=== PATIENT | male | born 1955 | race Caucasian/White ===

== ENCOUNTER 2019-08-30 16:29 | Inpatient (IN) | payer BC, OTHER, SELFPAY ==
[~2019-08-30 16:29] MED LIST: ISOVUE-370 76%-LOCM 1 ML ONE
[2019-08-30 16:58] LABS: #Lymphocytes 1.7 thou/uL (1.20-3.40); #Monocytes 1.4 thou/uL (0.11-0.59); #Neutrophils 15.6 thou/uL (1.40-6.50); %Basophils 0.2 % (0.0-1.0); %Eosinophils 0.1 % (0.0-10.0); %Monocytes 7.6 % (0.0-10.0); %Neutrophils 83.2 % (42.0-75.0); Hemoglobin 15.6 g/dL (14.0-18.0); Mean Corpuscular HGB CONC 32.2 g/dL (32.0-36.0); Mean Corpuscular Volume 96.1 fL (78.0-98.0); Mean Platelet Volume 7.4 fL (7.4-10.4); Platelet Count 240 thou/uL (130-400); RBC Distribution Width 11.3 % (11.5-14.5); Red Blood Cell (RBC) Count 5.05 mill/uL (4.70-6.10); White Blood Cell (WBC) Count 18.8 thou/uL (4.8-10.8)
[2019-08-30 17:28] LABS: ALT (SGPT) 118 U/L (8-55); AST (SGOT) 141 U/L (5-34); Albumin 4.5 g/dL (3.4-4.8); Alkaline Phosphatase 70 U/L (40-110); Anion Gap 14 mmol/L (10-20); BUN (Urea Nitrogen) 13 mg/dL (8.4-25.7); Bilirubin, Total 0.8 mg/dL (0.2-1.2); Calc. Creatinine Clearance 0 mL/min (70-130); Calcium 9.6 mg/dL (7.8-10.44); Carbon Dioxide 25 mmol/L (23-31); Chloride 102 mmol/L (98-107); Estimated GFR-MDRD Greater than 90; Globulin 2.6 g/dL (2.4-3.5); Glucose 133 mg/dL (80-115); Lipase 23 U/L (8-78); Potassium 3.6 mmol/L (3.5-5.1); Protein, Total 7.1 g/dL (5.8-8.1); Sodium 137 mmol/L (136-145)
[2019-08-30] MEDS ORDERED: Ondansetron PF 4 MG/2 ML Vial ONE (17:35)
[2019-08-30] MEDS ORDERED: Morphine 4 MG/ML VIAL ONE ×3 (17:35→19:53)
[2019-08-30 18:04] LABS: Bilirubin Negative (Negative); Blood, Urine Negative (Negative); Clarity Clear (Clear); Glucose, Urine (Dipstick) Normal (Negative); Leukocyte Negative Leu/uL (Negative); Nitrite Negative (Negative); Protein, Urine (Dipstick) Negative (Neg-Trace); Urobilinogen Normal mg/dL (Less than 2)
--- NOTE | 2019-08-30 18:19 | CT ---
CT abdomen and pelvis with IV contrast HISTORY: Abdomen pain. FINDINGS: Parenchymal hyperinflation and mild scarring at the lung bases. Gallbladder is surgically a bsent. Tiny adenoma the lateral limb left adrenal gland. Cortical cyst at the posterior aspect of the left kidney. Calcification throughout the arterial structures. No evidence of bowel obstruction. Scattered mild di verticula arise from the colon without adjacent inflammation. Severe degenerative changes throughout the lumbar spine with multilevel central canal and foraminal s tenoses. IMPRESSION: No acute abnormalities are demonstrated to explain abdominal pain. Mild diverticulosis. No evidence of diverticulitis. Atherosclerosis. Other chronic-type findings as described above.
[2019-08-30] MEDS ORDERED: Ketorolac Tromethamine 30 MG/ML VIAL ONE (19:52)
--- NOTE | 2019-08-30 20:59 | ULT ---
RIGHT UPPER QUADRANT ULTRASOUND CLINICAL HISTORY: Epigastric abdominal pain in lower back pain. COMPARISON: None FINDINGS: Liver:Normal echotexture without focal mass. Intrahepatic bile ducts: No intrahepatic or extrahepatic biliary dilation.; Common bile duct: 3 mm. Gallbladder: Surgically absent Cooley's sign:None Main portal vein:Patent with hepatopedal flow. Pancreas:Visualized pancreas appears normal. Right kidney: Right kidney measures 11.8 x 6.0 x 5.4 cm. No focal renal lesion or hydronephrosis. Additional findings: None. IMPRESSION: No acute abnormality. Cholecystectomy.
[2019-08-30 22:12] LABS: Troponin I 0.138 ng/mL (< 0.028)
[2019-08-30] MEDS ORDERED: Aspirin 325 MG TAB ONE (22:34)
[2019-08-31 01:05] LABS: Troponin I 0.108 ng/mL (< 0.028)
--- NOTE | 2019-08-31 02:26 | HP ---
CHIEF COMPLAINT: Severe lower abdominal pain. HISTORY OF PRESENT ILLNESS: Mr. Richard is a very pleasant 64-year-old gentleman, who has a history of hypertension as well as prostate cancer. He also has a history of psoriatic arthritis and hepatitis C, which has been treated. He says that he was in his usual state of health until yesterday when he says he woke up and had some coffee and then shortly after that he started having severe pain in his lower abdomen. He says it was radiating to his back. He says it was like a "super ache. He rated it about a 9/10. He says he tried to sleep and see if it would go away, but then later it came back and it was extremely severe. He also noticed that he passed some pale green stool at the time this time. He denies having any nausea or any vomiting. But due to the severity of the pain, he decided to come to the ER for evaluation. He was seen in the ER and was found to have slightly elevated troponins, as well as an elevation in his AST. A CT scan of the abdomen and pelvis was performed, but did not show any problems other than some mild diverticulosis. He is being admitted for further evaluation. The patient denies having any chest pain during this time. No shortness of breath, but he did say that he was sweating profusely when the pain was severe. He says that this pain also radiated to his lower back and to his buttocks. He says that prior to this about a week ago, he did notice that he had a flare of his psoriatic arthritis. He had gone to [facility] and at that time he had an injection of an anti-inflammatory and was prescribed Tylenol 3 and prednisone, but during this time, he did not have any type of abdominal pain. REVIEW OF SYSTEMS: All systems were reviewed and are negative except for that mentioned in the history of present illness. 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 Denies any dizziness or lightheaded and he also denied any abdominal pain after eating. PAST MEDICAL HISTORY: Significant for hypertension as well as hepatitis C, history of prostate cancer, psoriatic arthritis, as well as depression. PAST SURGICAL HISTORY: He has had a cholecystectomy and a prostatectomy. ALLERGIES: TO PENICILLIN. SOCIAL HISTORY: He is a former smoker. He previously smoked about half a pack a day for 20 years. He says he used to drink. He said he was not a heavy drinker before, but would drink about 1-1/2 glasses of red wine. He is . No children. FAMILY HISTORY: Significant for COPD in his mother. MEDICATIONS: Include: 1. Lisinopril. 2. Atorvastatin. 3. Lexapro. PHYSICAL EXAMINATION: GENERAL: He is alert and oriented. He appears to be in no acute distress. VITAL SIGNS: Stable with initially a blood pressure of 201/119, currently the most recent blood pressure is 125/91, heart rate 85, respiratory rate of 17, temperature is 97.9. HEENT: Pupils are equal, round, and reactive. Extraocular muscles are intact. Sclerae anicteric. Throat, there is no erythema. No exudates. NECK: No adenopathy, no bruits. LUNGS: Clear to auscultation. There is no wheezing, no rales, no rhonchi. CARDIOVASCULAR: He has a normal S1, S2. There is no S3 or S4. No murmurs, clicks, or rubs. ABDOMEN: Soft. He does have some residual epigastric tenderness. There is no rebound, no guarding. No evidence of any organomegaly. EXTREMITIES: There is no clubbing, cyanosis. No edema. NEUROLOGIC: The exam is nonfocal. SKIN AND INTEGUMENT: No skin changes, no rash. LABORATORY DATA: The sodium is 137, potassium 3.6, chloride is 102, CO2 is 25, BUN of 13, creatinine 0.75, glucose is 133, AST is 141, ALT is 118. Lipase was 23. Urinalysis was completely negative. CBC: The white blood cell count is 18.8, hemoglobin 15.6, hematocrit is 48.5, and platelet count is 240. Troponin is 0.113. ASSESSMENT: This is a 64-year-old gentleman, who presented with epigastric and lower abdominal pain, which started fairly acutely and was extremely severe. It is unclear whether or not it is related to eating. The pain sounds almost as if he may have a common duct stone. However, his alkaline phosphatase is normal. His pain also is reminiscent of pancreatitis, but he has a normal lipase. It is unclear what the etiology is. However, it does appear to be likely gastrointestinal in origin and he does have a significant either stress or inflammatory response with an elevated white blood cell count of 18.8. For this reason, we will go ahead and bring him in the hospital and consult gastroenterology for further recommendations. 1. Elevated troponin. This is unclear etiology. His symptoms do not seem cardiac in origin and he does appear to be fairly active without any signs of angina. We will get an echocardiogram as a means of screening as well as lipid panel and should he have any regional wall motion abnormalities, continue getting a stress test. 2. Psoriatic arthritis. This appears to be clinically stable after his recent flare and elevated glucose. We will get an A1c and trend his glucose levels. 3. We will also repeat his liver test this morning. Job ID: [id number]
[2019-08-31] MEDS ORDERED: hydrALAZINE 20 MG/ML VIAL SLOW IVP PRN (02:48)
[2019-08-31] MEDS ORDERED: Acetaminophen 325 MG TAB PO PRN (02:48)
[2019-08-31] MEDS ORDERED: Morphine 2 MG/ML SYRINGE ONE ×2 (03:01→08:08)
[2019-08-31] MEDS: Morphine 2 MG/ML SYRINGE SLOW IVP PRN ×4 (03:13→22:06)
[2019-08-31] MEDS ORDERED: Sodium Chloride 0.9% 1,000 ML IV SCH (03:15)
[2019-08-31 03:19] LABS: Lactic Acid 2.4 mmol/L (0.5-2.2)
[2019-08-31 03:32] LABS: ALT (SGPT) 317 U/L (8-55); AST (SGOT) 287 U/L (5-34); Albumin 4.5 g/dL (3.4-4.8); Alkaline Phosphatase 99 U/L (40-110); Anion Gap 15 mmol/L (10-20); BUN (Urea Nitrogen) 10 mg/dL (8.4-25.7); Bilirubin, Total 1.5 mg/dL (0.2-1.2); Calc. Creatinine Clearance 0 mL/min (70-130); Calcium 9.9 mg/dL (7.8-10.44); Carbon Dioxide 26 mmol/L (23-31); Chloride 103 mmol/L (98-107); Estimated GFR-MDRD Greater than 90; Globulin 2.8 g/dL (2.4-3.5); Glucose 121 mg/dL (80-115); Protein, Total 7.3 g/dL (5.8-8.1); Sodium 140 mmol/L (136-145)
[2019-08-31] MEDS ORDERED: Acetaminophen 325 MG TAB ONE (04:29)
[2019-08-31 07:36] LABS: #Lymphocytes 1.7 thou/uL (1.20-3.40); #Monocytes 1.4 thou/uL (0.11-0.59); #Neutrophils 13.5 thou/uL (1.40-6.50); %Basophils 0.1 % (0.0-1.0); %Eosinophils 0.2 % (0.0-10.0); %Lymphocytes 10.2 % (21.0-51.0); %Monocytes 8.4 % (0.0-10.0); Hemoglobin 15.5 g/dL (14.0-18.0); Mean Corpuscular HGB CONC 34.8 g/dL (32.0-36.0); Mean Corpuscular Hemoglobin 33.7 pg (27.0-31.0); Mean Corpuscular Volume 96.8 fL (78.0-98.0); Mean Platelet Volume 8.2 fL (7.4-10.4); Platelet Count 211 thou/uL (130-400); RBC Distribution Width 11.5 % (11.5-14.5); Red Blood Cell (RBC) Count 4.61 mill/uL (4.70-6.10); White Blood Cell (WBC) Count 16.6 thou/uL (4.8-10.8)
[2019-08-31] MEDS ORDERED: Aspirin 325 MG TAB ONE (09:01)
[2019-08-31] MEDS ORDERED: Enoxaparin Sodium 40 MG/0.4 ML SYRINGE ONE (09:01)
[2019-08-31] MEDS: Aspirin 325 mg Enteric Coated Tablet PO SCH (09:05)
[2019-08-31] MEDS: Saccharomyces boulardii 250 MG CAP PO SCH (09:05)
[2019-08-31] MEDS: Enoxaparin Sodium 40 MG/0.4 ML SYRINGE SC SCH (09:06)
[2019-08-31] MEDS ORDERED: HYDROcodone/Acetaminophen 5/325 mg Tablet ONE (10:31)
[2019-08-31] MEDS: HYDROcodone/Acetaminophen 5/325 mg Tablet PO PRN ×2 (10:33→14:56)
[2019-08-31 11:23] LABS: HBSAg Index 0.16 S/CO (0-0.99); Hep A IgM AB Non-Reactive (NonReactive); Hep A IgM S/CO 0.07 S/CO (0-0.79); Hep B Surf Ag Non-Reactive S/CO (NonReactive); Hepatitis B Core IgM Abs Non-Reactive (NonReactive)
[2019-08-31 11:50] LABS: Hep C IgG Ab Reflex HepC Qnt (NonReactive); Hep C Index 10.28 S/CO (0-0.79)
[2019-08-31] MEDS ORDERED: Ketorolac Tromethamine 30 MG/ML VIAL IVP SCH (12:15)
[2019-08-31 12:23] VITALS: BMI 25.2
[2019-08-31] MEDS: Sodium Chloride 0.9% 1,000 ML IV SCH ×2 (12:30→22:07)
[2019-08-31] MEDS: metroNIDAZOLE 500 MG in Premix Bag 1 BAG IVPB SCH ×2 (13:30→22:07)
--- NOTE | 2019-08-31 15:33 | CT ---
CT BRAIN WITHOUT CONTRAST: HISTORY: Headache. FINDINGS: No evidence of infarct, hemorrhage, midline shift or abnormal extraaxial fluid collections is seen. T he ventricular size is appropriate and the basilar cisterns are patent. The bony calvarium is intact. The visualized paranasal sinuses and mastoid air cells are well aerated. There is asymmetric prominence of the right internal carotid artery in the cavernous portion. The pos sibility of aneurysm cannot be excluded. IMPRESSION: 1. No CT evidence of acute intracranial process. 2. Further evaluation with CTA of the brain is recommended to evaluate for possible aneurysm. POS: TPC
[2019-08-31] MEDS ORDERED: Polyethylene Glycol 3350 17 GM Packet PO PRN (15:46)
[2019-08-31] MEDS: traMADol HCl 50 MG TAB PO PRN (17:42)
--- NOTE | 2019-09-01 01:34 | CON ---
DATE OF CONSULTATION: 08/31/2019 REASON FOR CONSULTATION: Elevated LFTs, increased abdominal pain. CONSULTING PROVIDER: Rizwan Chaney MD HISTORY OF PRESENT ILLNESS: The patient is a 64-year-old male with past medical history of psoriatic arthritis, hypertension, chronic hepatitis C status post treatment with both interferon and Sovaldi, pancreatitis, and prostate cancer presenting with complaints of abdominal pain. Approximately 1 week ago, the patient had been experiencing increased pains in his joints related to psoriatic arthritis and was evaluated by his physician here in [place]. As such, he ultimately underwent an injection of Toradol in addition to placement on prednisone and Tylenol No. 3 for further management of this condition. He had been taking these medications for approximately 3 to 4 days. When yesterday, he had acute onset of periumbilical abdominal pain that was characterized as a sharp/stabbing/cramping type sensation and radiated to the bilateral lower back, the pain lasted approximately 2-3 hours and then resolved, but then recurred later in the evening that prompted admission and reached a severity of 9/10. The patient did not endorse any exacerbating factors, but was better with the administration of narcotic medications during this admission. With the onset of this pain, it was also associated with one pale-colored stool that was prior to the onset of the pain. He adds that he has been having approximately one semi-solid bowel movement per day over the last 1 to 2 weeks with no difficulty with defecation. However, during the course of this admission, the patient was given narcotic medications both in the ER and on the floor and has now had complete resolution of his abdominal pain. Rather, he now complains of any increased headache that has been present since the onset of his abdominal pain yesterday. With the onset of his headache, he denies any paresthesias or changes in vision and has not had a headache like this before. Currently, he denies any nausea, vomiting, fevers, chills, hematemesis, melena, hematochezia, odynophagia, or constipation. REVIEW OF SYSTEMS: A 10-category review of systems was obtained with all responses negative except for the pertinent positives as listed in HPI. PAST MEDICAL HISTORY: As per HPI. PAST SURGICAL HISTORY: Cholecystectomy, prostatectomy. FAMILY HISTORY: Denies any GI malignancies. SOCIAL HISTORY: Denies any tobacco, alcohol, or illicit drug use. OUTPATIENT MEDICATIONS: 1. Lisinopril. 2. Atorvastatin. 3. Lexapro. ALLERGIES: PENICILLIN. PHYSICAL EXAMINATION: VITAL SIGNS: Temperature 97.8, pulse 61, blood pressure 160/95, respiratory rate 18, saturating 96% on room air. GENERAL: The patient is lying in bed, in no acute distress. Alert and oriented x4. HEENT: Normocephalic, atraumatic. NECK: Supple. No JVD or scleral icterus noted. CARDIOVASCULAR: Regular rate and rhythm with no discernible murmurs, gallops, or rubs. RESPIRATORY: Clear to auscultation bilaterally with no discernible wheezes or rales. ABDOMEN: Normoactive bowel sounds. Soft, nontender, nondistended. EXTREMITIES: No cyanosis, clubbing, or edema. LABORATORY DATA: CBC with a white blood cell count of 16.6, hemoglobin 15.5, hematocrit 44.7, platelets 211. Chemistry with a sodium of 140, potassium 4, chloride 103, CO2 of 26, BUN 10, creatinine 0.75, glucose 121. AST 287, ALT 317, alkaline phosphatase 99, total bilirubin 1.5, albumin 4.5. Acute hepatitis panel was negative for hepatitis A and B, but positive for hepatitis C antibody with viral load still pending at this time. IMAGING DATA: Right upper quadrant ultrasound was obtained on August 30, 2019, which showed no intra or extrahepatic dilatation with the common bile duct measuring 3 mm in size and the liver heterogeneous and normal in appearance. CT of the abdomen and pelvis was obtained on August 30, 2019, which showed surgical change consistent with cholecystectomy and severe degenerative joint disease of the spine. However, no intraabdominal abnormalities were noted except for mild diverticulosis within the sigmoid colon. ASSESSMENT AND PLAN: The patient is a 64-year-old male with past medical history of psoriatic arthritis, hypertension, chronic hepatitis C, status post treatment and eradication with Sovaldi, pancreatitis (no further recurrences), and prostate cancer, presenting with increased periumbilical abdominal pain (now resolved) and abnormal liver function tests. Abnormal LFTs. The patient is presenting with a recent history of acute onset of periumbilical abdominal pain that has now since resolved, but upon admission the patient was noted to have elevated liver function tests, as part of routine testing. Upon review of the patient's recent history, he also states that he had recently had medication changes including Toradol, prednisone, and Tylenol No. 3 over the last week, which could potentially generate the elevated LFTs now. Given the degree of AST and ALT elevation in relation to his alkaline phosphatase and total bilirubin, this could be considered hepatocellular injury as opposed to a cholestatic or mixed process. Current differential could include medication-induced hepatotoxicity, autoimmune process (unlikely), Michael disease and/or GI malignancy (less likely). RECOMMENDATIONS: 1. I would continue to trend his LFTs daily for continued monitoring of the patient's liver function/inflammation. 2. Would attempt to avoid any hepatotoxic medications during this admission including NSAIDs. 3. We will follow up on labs for antismooth-muscle antibody, ceruloplasmin, and hepatitis C viral load to confirm eradication. 4. We would consider obtaining serologies for CMV and VZV if the patient's LFTs continue to rise. 5. We would also confer with Radiology about the CT abdomen and pelvis and possible stenoses within the celiac plexus that might contribute to a vascular insufficiency, albeit unlikely. We will continue to follow. Please call with any questions. Job ID: [id number]
[2019-09-01] MEDS: metroNIDAZOLE 500 MG in Premix Bag 1 BAG IVPB SCH ×3 (06:24→19:42)
[2019-09-01] MEDS: Morphine 2 MG/ML SYRINGE SLOW IVP PRN ×3 (06:26→23:49)
[2019-09-01 06:42] LABS: ALT (SGPT) 168 U/L (8-55); AST (SGOT) 61 U/L (5-34); Albumin 4.2 g/dL (3.4-4.8); Alkaline Phosphatase 102 U/L (40-110); Anion Gap 12 mmol/L (10-20); BUN (Urea Nitrogen) 7 mg/dL (8.4-25.7); Bilirubin, Total 1.4 mg/dL (0.2-1.2); Calc. Creatinine Clearance 136 mL/min (70-130); Calcium 9.3 mg/dL (7.8-10.44); Carbon Dioxide 25 mmol/L (23-31); Chloride 101 mmol/L (98-107); Estimated GFR-MDRD Greater than 90; Globulin 2.6 g/dL (2.4-3.5); Glucose 106 mg/dL (80-115); Potassium 3.6 mmol/L (3.5-5.1); Protein, Total 6.8 g/dL (5.8-8.1); Sodium 134 mmol/L (136-145)
[2019-09-01] MEDS: traMADol HCl 50 MG TAB PO PRN ×2 (08:56→19:23)
[2019-09-01] MEDS: Saccharomyces boulardii 250 MG CAP PO SCH (08:58)
[2019-09-01] MEDS: Enoxaparin Sodium 40 MG/0.4 ML SYRINGE SC SCH (08:58)
[2019-09-01] MEDS: Aspirin 325 mg Enteric Coated Tablet PO SCH (08:58)
[2019-09-01] MEDS: Lisinopril 20 MG TAB PO SCH (09:01)
[2019-09-01] MEDS: Escitalopram Oxalate 10 mg Tablet PO SCH (09:01)
[2019-09-01] MEDS: Sodium Chloride 0.9% 1,000 ML IV SCH ×3 (13:05→23:55)
[2019-09-01] MEDS ORDERED: Magnesium Citrate 300 ML BOT PO SCH (18:00)
--- NOTE | 2019-09-01 18:54 | PDOC.HOSPP ---
- Subjective Encounter Date: 09/01/19 Subjective: Pt seen says has persistent right upper quadrant pain , Denies nausea vomiting but feels constipation says feels uncomfortable with pain - Objective Vital Signs & Weight: Vital Signs (12 hours) Temp Pulse Resp BP Pulse Ox 09/01/19 15:15 98.2 F 85 16 137/102 H 96 09/01/19 11:28 97.7 F 89 22 H 128/85 96 09/01/19 07:21 97.6 F 66 16 171/85 H 96 Weight Weight 196 lb 12.8 oz I&O: 08/31/19 09/01/19 09/02/19 06:59 06:59 06:59 Intake Total 2530 2317 Balance 2530 2317 Result Diagrams: 08/31/19 07:22 09/01/19 05:51 Hospitalist ROS - Review of Systems Constitutional: denies: fever Eyes: denies: pain ENT: denies: ear pain Respiratory: denies: cough Cardiovascular: denies: chest pain Gastrointestinal: reports: abdominal pain, constipation Genitourinary: denies: dysuria Musculoskeletal: denies: neck pain Neurological: denies: weakness - Medication Medications: Active Medications Generic Name Dose Route Start Last Admin Trade Name Freq PRN Reason Stop Dose Admin Aspirin 325 mg 08/31/19 09:00 09/01/19 08:58 Ecotrin PO 325 mg DAILY MORAIMA Administration Enoxaparin Sodium 40 mg 08/31/19 09:00 09/01/19 08:58 Lovenox SC 40 mg 0900 MORAIMA Administration Escitalopram Oxalate 10 mg 09/01/19 09:00 09/01/19 09:01 Lexapro PO 10 mg DAILY MORAIMA Administration Hydralazine HCl 10 mg 08/31/19 02:48 08/31/19 12:29 Apresoline SLOW IVP 10 mg Q4H PRN Administration SBP > 180 and HR < 70 Ciprofloxacin/Dextrose 400 mg/ 200 mls @ 200 mls/hr 08/31/19 09:00 09/01/19 09:01 Device IVPB 200 mls Q12HR MORAIMA Administration Metronidazole 500 mg/ Device 100 mls @ 100 mls/hr 08/31/19 14:00 09/01/19 14: 13 IVPB 100 mls Q8HR MORAIMA Administration Sodium Chloride 1,000 mls @ 125 mls/hr 08/31/19 12:15 09/01/19 13:05 Normal Saline 0.9% IV 1,000 mls .Q8H MORAIMA Administration Lisinopril 20 mg 09/01/19 09:00 09/01/19 09:01 Zestril PO 20 mg DAILY MORAIMA Administration Magnesium Citrate 300 ml 09/01/19 18:00 09/01/19 18:03 Citrate Of Magnesia 300 Ml Bot PO 09/01/19 20:00 300 ml NOW MORAIMA Administration Morphine Sulfate 2 mg 08/31/19 02:48 09/01/19 06:26 Morphine SLOW IVP 2 mg Q4H PRN Administration Moderate to Severe Pain (6-10) Saccharomyces Boulardii 250 mg 08/31/19 09:00 09/01/19 08:58 Florastor PO 250 mg DAILY MORAIMA Administration Sodium Chloride 10 ml 08/31/19 09:00 09/01/19 08:59 Flush - Normal Saline IVF Not Given Q12HR MORAIMA Tramadol HCl 50 mg 08/31/19 16:24 09/01/19 08:56 Ultram PO 50 mg Q6H PRN Administration Pain - Exam General Appearance: awake alert Eye: anicteric sclera ENT: normocephalic atraumatic Neck: supple Heart: no murmur Respiratory: no wheezes Gastrointestinal: soft Gastrointestinal - other findings: tender RUQ on deep palpation no rebound or gaurding Skin: normal turgor Neurological: cranial nerve grossly intact Musculoskeletal: normal tone Psychiatric: normal affect, A&O x 3 Hosp A/P - Plan Intractable RUQ pain with deranged LFT and high lactic acid level on admission GI Evaluation appreciated , pending MRI abdomen in am , Anti hcv positive , LFT trending down , Continue prn pain tramadol , mag citrate given for constipation Positive troponin possible demand supply mismatch Denies chest pain or SOB as per pt 2 yesrs ago cardiac cath done Glavaston neg H/O Psoriatic arthritis Continue prn pain meds DVT/GI prophaylxis Plan Discussed with pt and nursign staff
--- NOTE | 2019-09-01 21:49 | PRG ---
DATE OF SERVICE: 09/01/2019 SUBJECTIVE: Mr. Richard felt better yesterday, but today the abdominal pain returned and it seems to be a little more located towards the right upper quadrant and periumbilical region. He states that he feels constipated and his last bowel movement was Friday. This was an incomplete bowel movement. He took two 5 mg Dulcolax tablets from home. He took those in his hospital room this afternoon, but has had no results from them. OBJECTIVE: VITAL SIGNS: Temperature 98.2, pulse 85, and blood pressure 137/102. GENERAL: He is in no acute distress. Alert and oriented x3. HEENT: Eyes have no scleral icterus. Oropharynx is clear without lesions. LUNGS: Clear to auscultation bilaterally. HEART: Regular rate and rhythm without murmur. ABDOMEN: Soft. Mild tenderness in the right upper quadrant without guarding. Bowel sounds are present. EXTREMITIES: No lower extremity edema. LABORATORY DATA: White blood cell count 16.8, hemoglobin 15.5, and platelets 211. Creatinine 0.71, bilirubin 1.4, AST 61, ALT 168, alkaline phosphatase 102, albumin 4.2, and lipase was 23 yesterday. IMPRESSION: 1. Abnormal liver function tests. 2. Right upper quadrant to periumbilical abdominal pain. The CT scan does show significant amount of stool over in the ascending colon and this might be the source of his pain. He has had no bowel movement for a couple days and the one that he had on Friday morning was incomplete. He took a couple of stimulant laxatives himself that he brought from home, but has had no output with that as of yet. Alternatively does have a history of gallstone pancreatitis and had cholecystectomy for that in the past. He has pain that is more towards the right upper quadrant with elevated white blood cell count and elevated liver tests including more of a hepatocellular injury pattern with transaminitis. However, the bilirubin is also elevated. A primary stone in the bile duct is possible. Other possibility would be medication side effects given recently taking Tylenol and opioids and prednisone. RECOMMENDATIONS: 1. We will give him a bottle of Mag citrate this afternoon. If his abdominal pain resolves with bowel movement, then we will place him on daily scheduled MiraLAX. The constipation; however, would not explain the elevated liver tests and elevated white blood cell count. 2. We will plan MRCP tomorrow morning to rule out retained or primary bile duct stone. Job ID: [id number]
[2019-09-01] MEDS: Nitroglycerin 0.4 MG TAB (25 Tab Bottle) SL PRN ×3 (22:19→23:22)
[2019-09-01 22:23] LABS: #Eosinphils 0.2 thou/uL (0.0-0.7); #Lymphocytes 1.7 thou/uL (1.20-3.40); #Monocytes 1.8 thou/uL (0.11-0.59); #Neutrophils 13.6 thou/uL (1.40-6.50); %Basophils 0.1 % (0.0-1.0); %Lymphocytes 9.9 % (21.0-51.0); %Monocytes 10.2 % (0.0-10.0); %Neutrophils 78.8 % (42.0-75.0); Hemoglobin 15.6 g/dL (14.0-18.0); Mean Corpuscular HGB CONC 35.5 g/dL (32.0-36.0); Mean Corpuscular Hemoglobin 33.8 pg (27.0-31.0); Mean Corpuscular Volume 95.2 fL (78.0-98.0); Mean Platelet Volume 7.1 fL (7.4-10.4); Platelet Count 185 thou/uL (130-400); RBC Distribution Width 11.4 % (11.5-14.5); White Blood Cell (WBC) Count 17.3 thou/uL (4.8-10.8)
--- NOTE | 2019-09-01 22:37 | RAD ---
Chest AP view INDICATION: Chest pain and shortness of breath COMPARISON: Prior single view the chest dated July 22, 2013 FINDINGS: Lungs:There is a stable calcified granuloma in the right upper lobe. No definite consolidation is samantha dent. Cardiac silhouette:The cardiomediastinal silhouette appears within normal limits. Pulmonary vasculature:Normal Pleural spaces:No pleural effusion or pneumothorax is demonstrated. Upper abdomen:No abnormality seen. Osseous structures: No acute osseous abnormality. Additional findings:None. IMPRESSION: No acute cardiopulmonary abnormality.
[2019-09-01 22:45] LABS: Anion Gap 12 mmol/L (10-20); BUN (Urea Nitrogen) 8 mg/dL (8.4-25.7); Calc. Creatinine Clearance 136 mL/min (70-130); Calcium 8.7 mg/dL (7.8-10.44); Carbon Dioxide 26 mmol/L (23-31); Chloride 99 mmol/L (98-107); Estimated GFR-MDRD Greater than 90; Glucose 134 mg/dL (80-115); Magnesium 2.1 mg/dL (1.6-2.6); Potassium 3.5 mmol/L (3.5-5.1); Sodium 133 mmol/L (136-145)
[2019-09-01 23:30] LABS: CKMB 52.1 ng/mL (0-6.6)
[2019-09-01] MEDS ORDERED: Nitroglycerin 2% Ointment 1 INCH/1 GM Packet TOP SCH (23:30)
--- NOTE | 2019-09-01 23:38 | PDOC.EVN ---
Event Note - Event Note Event Note: Notified by RN, patient complaining of chest pain. No relief despite morphine and tramadol given. I ordered stat EKG as well as labs (CBC, BMP, Mg+ and troponin). Patient evaluated and states he has had chest pain since 5pm/6pm which he described as "excruciating" over the left side of his chest feeling as if someone was sitting on his chest. He reports difficulty with his breathing due to the pain. It has eased off "a notch" but remains persistent. It is now in the center of his chest. It has been constant. States it started after he took a couple of bites of his supper. Reports feeling diaphoretic. No abdominal pain at present. States he came in with abdominal pain and this is different from the pain he came in with . No cough or hemoptysis. On exam appeared anxious and laying flat in bed. States pain is an 8/10 in severity. No tenderness with palpation. BP elevated 170 systolic. No abdominal pain or tenderness. Lungs clear. Heart sounds normal. EKG showed NSR. Troponin has since come back elevated at 10. Dr. Lim alerted of possible NSTEMI. Given drop in BP before nitro given, CT aortic dissection stat. Patient being treated for hepatitis, we have ordered stat coags. Will wait on both of those before proceeding with Lovenox 1 mg/kg (would be 90 mg based on his weight). Consult placed to cardiology Repeat EKG 2 hours from first EKG. If ST elevation, RN aware to activate STEMI alert. Above plan as per discussion with Dr. Lim. Patient with normal coags. BP labile. Lovenox 90 mg SC x 1 given. Nitro drip ordered per Dr. Lim, and patient will be transferred to ICU. Addendum: I have re-evaluated patient around 5am, chest pain has eased up, no sob vitals are stable will inform cardio environmental health inspector, keep him npo
--- NOTE | 2019-09-01 23:47 | CT ---
CTA OF THE CHEST AND ABDOMEN UTILIZING AN AORTIC DISSECTION PROTOCOL AND 3-D REFORMATTED IMAGING INDICATION: Chest pain COMPARISON: None FINDINGS: Aorta: No acute aortic stenosis, occlusion or aneurysmal formation demonstrated. There is tortuosity to the thoracic aorta, related to the patient's thoracolumbar scoliosis. Central pulmonary artery: No central pulmonary embolus demonstrated. Additional thorax findings: No focal consolidation, pleural effusion or pneumothorax is evident. Additional abdominal findings: No acute abnormality. Osseous structures: No acute osseous abnormality. IMPRESSION: 1. No appreciable aortic stenosis, occlusion or aneurysmal formation demonstrated.
[2019-09-02 00:13] LABS: INR-International Normal Ratio 1.1; PTT 31.8 SEC (22.9-36.1); Prothrombin Time 14.1 SEC (12.0-14.7)
[2019-09-02] MEDS ORDERED: Enoxaparin Sodium 100 MG/ML SYRINGE SC SCH ×2 (00:30→09:00)
[2019-09-02] MEDS ORDERED: Nitroglycerin 50 MG/250 ML BOT 250 ML IVPB SCH (00:45)
[2019-09-02] MEDS: traMADol HCl 50 MG TAB PO PRN ×2 (01:14→12:59)
[2019-09-02] MEDS ORDERED: Ketorolac Tromethamine 30 MG/ML VIAL IVP SCH (02:00)
[2019-09-02] MEDS ORDERED: Docusate 100 MG CAP PO SCH (02:00)
[2019-09-02] MEDS ORDERED: Metoprolol Tartrate 25 MG TAB PO SCH (02:00)
[2019-09-02] MEDS: Morphine 2 MG/ML SYRINGE SLOW IVP PRN ×2 (03:45→16:26)
[2019-09-02] MEDS: metroNIDAZOLE 500 MG in Premix Bag 1 BAG IVPB SCH ×3 (03:46→20:25)
[2019-09-02 04:54] LABS: #Eosinphils 0.2 thou/uL (0.0-0.7); #Lymphocytes 1.6 thou/uL (1.20-3.40); #Neutrophils 13.4 thou/uL (1.40-6.50); %Basophils 0.1 % (0.0-1.0); %Eosinophils 1.2 % (0.0-10.0); %Lymphocytes 9.1 % (21.0-51.0); %Monocytes 11.6 % (0.0-10.0); Hemoglobin 14.6 g/dL (14.0-18.0); Mean Corpuscular Hemoglobin 33.6 pg (27.0-31.0); Mean Platelet Volume 7.5 fL (7.4-10.4); Platelet Count 197 thou/uL (130-400); RBC Distribution Width 11.5 % (11.5-14.5); Red Blood Cell (RBC) Count 4.35 mill/uL (4.70-6.10); White Blood Cell (WBC) Count 17.2 thou/uL (4.8-10.8)
[2019-09-02 05:15] LABS: ALT (SGPT) 108 U/L (8-55); AST (SGOT) 77 U/L (5-34); Albumin 3.8 g/dL (3.4-4.8); Alkaline Phosphatase 85 U/L (40-110); Anion Gap 10 mmol/L (10-20); BUN (Urea Nitrogen) 9 mg/dL (8.4-25.7); Bilirubin, Total 1.7 mg/dL (0.2-1.2); Calc. Creatinine Clearance 134 mL/min (70-130); Calcium 8.9 mg/dL (7.8-10.44); Carbon Dioxide 29 mmol/L (23-31); Chloride 100 mmol/L (98-107); Estimated GFR-MDRD Greater than 90; Globulin 2.1 g/dL (2.4-3.5); Glucose 112 mg/dL (80-115); Potassium 4.1 mmol/L (3.5-5.1); Protein, Total 5.9 g/dL (5.8-8.1); Sodium 135 mmol/L (136-145)
[2019-09-02] MEDS: Lisinopril 20 MG TAB PO SCH (08:14)
[2019-09-02] MEDS: Saccharomyces boulardii 250 MG CAP PO SCH (08:14)
[2019-09-02] MEDS: Aspirin 325 mg Enteric Coated Tablet PO SCH (08:14)
[2019-09-02] MEDS: Escitalopram Oxalate 10 mg Tablet PO SCH (08:14)
[2019-09-02] MEDS: Polyethylene Glycol 3350 17 GM Packet PO SCH (08:15)
[2019-09-02] MEDS: Docusate 100 MG CAP PO SCH (08:15)
[2019-09-02] MEDS ORDERED: Communication Order-Pharmacy FS SCH (08:30)
[2019-09-02] MEDS ORDERED: Aspirin Chewable 81 MG TAB PO SCH (09:15)
[2019-09-02] MEDS: Sodium Chloride 0.9% 1,000 ML IV SCH ×2 (09:52→20:07)
[2019-09-02] MEDS ORDERED: Lidocaine 1% (PF) 30 ML VIAL ONE (10:15)
[2019-09-02] MEDS ORDERED: Diazepam 5 MG TAB PO SCH (10:15)
--- NOTE | 2019-09-02 10:24 | CON ---
DATE OF CONSULTATION: 09/02/2019 REASON FOR CONSULTATION: Non-ST elevation myocardial infarction. HISTORY OF PRESENT ILLNESS: Mr. Richard is a complicated 64-year-old gentleman, who was admitted to the hospital a couple of days ago with severe epigastric and mid abdominal pain. The patient has a history of hepatitis C, which has been treated in the past. He also has history of prostate cancer and psoriatic arthritis. The patient had the onset of severe substernal chest pain last night different from any pain he has had before. He was moved to the intensive care unit. He was found to have increased troponin level. He was given enoxaparin and intravenous nitroglycerin. The patient is pain-free now. The patient otherwise has been in fair physical condition. He says the psoriatic arthritis has recently has flared up. The patient was treated in the past for hepatitis C, although his liver function tests were again elevated. The patient does not currently smoke. REVIEW OF SYSTEMS: CONSTITUTIONAL: No significant weight gain or loss. VISION: No changes. HEARING: No changes. PULMONARY: No cough or wheezing. GASTROINTESTINAL: No nausea, vomiting, or diarrhea. SKIN: No rashes. NEUROLOGIC: No unilateral weakness or numbness. PSYCHIATRIC: No unusual depression or anxiety. CURRENT MEDICATIONS: The patient is currently on intravenous nitrates and he is also on subcutaneous Lovenox, he received at 12:30 a.m. Other medicine the patient is also on; 1. Ciprofloxacin. 2. Metronidazole. ALLERGIES: TO PENICILLIN. SOCIAL HISTORY: As outlined above. Previous smoking, none recently. PHYSICAL EXAMINATION: GENERAL: This is a pleasant, somewhat apprehensive 64-year-old man. VITAL SIGNS: Blood pressure is 128/87 and pulse is 80s. HEENT: Eyes, sclerae nonicteric. Mouth, mucous membranes moist. NECK: Supple. No lymphadenopathy. LUNGS: Clear. No wheezing, rales, or rhonchi. CARDIAC: Normal S1 and normal S2. There is no murmur, rub, or gallop. ABDOMEN: Soft and nontender. No hepatosplenomegaly. EXTREMITIES: Warm and dry. No clubbing or cyanosis or edema. Good peripheral pulses. Good posterior tibial and dorsalis pedis pulses. LABORATORY DATA: EKG does show Q-waves in the inferior leads. There is no ST changes last night. The patient's peak troponin is 12 and peak CK-MB is 91. The patient's bilirubin is 1.7 and ALT is 168 down to 108. Potassium is 4.1. The PT and PTT are within normal limits. ASSESSMENT: 1. Non-ST elevation myocardial infarction, although he now has Q-waves in the inferior leads. 2. Abdominal pain of uncertain etiology, being evaluated by Gastroenterology. 3. History of hepatitis C. 4. History of psoriatic arthritis. 5. History of prostate cancer with previous prostatectomy with no evidence of any recurrence. PLAN: At this time, it would be appropriate to proceed to cardiac catheterization. Discussed risk of stroke, heart attack, iodine allergy, loss of blood supply to leg or kidney, and vessel perforation in the coronary artery. The patient understands and wished to proceed. As mentioned, prognosis is guarded. He has multiple medical problems, complicated patient. Approximately an hour was spent reviewing studies, reviewing the history, and evaluating and examining the patient. Job ID: [id number]
--- NOTE | 2019-09-02 10:39 | PDOC.HOSPP ---
- Subjective Encounter Date: 09/02/19 Subjective: Pt seen in ICU jody C/O mild soreness left side of chest has had left sided chest pain last night and positive troponins CTA chest neg for disection and pt admitted to icu being arranged for heart cath today , denies abdominal pain today had bowel movement not in distress but looks little nervous - Objective Vital Signs & Weight: Vital Signs (12 hours) Temp BP BP Pulse Ox 09/02/19 08:14 125/97 H 09/02/19 08:00 97.7 F 97 09/02/19 04:00 98.0 F 09/02/19 00:50 97 09/02/19 00:05 156/104 H 09/01/19 23:55 200/84 H 09/01/19 23:17 155/104 H 09/01/19 22:40 140/96 H 09/01/19 22:35 138/99 H Weight Weight 196 lb 12.8 oz Most Recent Monitor Data Heart Rate from ECG 104 NIBP 132/99 NIBP BP-Mean 110 Respiration from ECG 17 SpO2 95 I&O: 09/01/19 09/02/19 09/03/19 06:59 06:59 06:59 Intake Total 2530 2654 Output Total 150 250 Balance 2530 2504 -250 Result Diagrams: 09/02/19 04:26 09/02/19 04:26 Hospitalist ROS - Review of Systems Eyes: denies: vision change ENT: denies: ear pain Respiratory: denies: cough Cardiovascular: reports: chest pain Gastrointestinal: denies: abdominal pain Musculoskeletal: denies: neck pain Neurological: denies: weakness - Medication Medications: Active Medications Generic Name Dose Route Start Last Admin Trade Name Dilshadq PRN Reason Stop Dose Admin Aspirin 325 mg 08/31/19 09:00 09/02/19 08:14 Ecotrin PO 325 mg DAILY MORAIMA Administration Aspirin 162 mg 09/02/19 09:15 09/02/19 09:50 Aspirin Chewable PO 09/02/19 11:15 162 mg NOW MORAIMA Administration Diazepam 5 mg 09/02/19 10:15 09/02/19 10:26 Valium PO 09/02/19 12:00 5 mg NOW MORAIMA Administration Docusate Sodium 100 mg 09/02/19 09:00 09/02/19 08:15 Colace PO Not Given DAILY MORAIMA Escitalopram Oxalate 10 mg 09/01/19 09:00 09/02/19 08:14 Lexapro PO 10 mg DAILY MORAIMA Administration Hydralazine HCl 10 mg 08/31/19 02:48 08/31/19 12:29 Apresoline SLOW IVP 10 mg Q4H PRN Administration SBP > 180 and HR < 70 Ciprofloxacin/Dextrose 400 mg/ 200 mls @ 200 mls/hr 08/31/19 09:00 09/02/19 08:13 Device IVPB 200 mls Q12HR MORAIMA Administration Metronidazole 500 mg/ Device 100 mls @ 100 mls/hr 09/01/19 20:00 09/02/19 03: 46 IVPB 100 mls 0400,1200,2000 MORAIMA Administration Nitroglycerin/Dextrose 250 mls @ 0 mls/hr 09/02/19 00:45 09/02/19 01:00 Nitroglycerin 50 Mg/250 Ml Bot IVPB 250 mls INF MORAIMA Administration Protocol Titrate Sodium Chloride 1,000 mls @ 100 mls/hr 09/02/19 08:30 09/02/19 09:52 Normal Saline 0.9% IV 1,000 mls .Q10H MORAIMA Administration Lisinopril 20 mg 09/01/19 09:00 09/02/19 08:14 Zestril PO 20 mg DAILY MORAIMA Administration Morphine Sulfate 2 mg 08/31/19 02:48 09/02/19 03:45 Morphine SLOW IVP 2 mg Q4H PRN Administration Moderate to Severe Pain (6-10) Nitroglycerin 0.4 mg 09/01/19 22:08 09/01/19 23:22 Nitrostat SL 0.4 mg Q5MIN PRN Administration Chest Pain Polyethylene Glycol 17 gm 09/02/19 09:00 09/02/19 08:15 Miralax PO Not Given DAILY MORAIMA Saccharomyces Boulardii 250 mg 08/31/19 09:00 09/02/19 08:14 Florastor PO 250 mg DAILY MORAIMA Administration Sodium Chloride 10 ml 08/31/19 09:00 09/02/19 08:15 Flush - Normal Saline IVF 10 ml Q12HR MORAIMA Administration Tramadol HCl 50 mg 08/31/19 16:24 09/02/19 01:14 Ultram PO 50 mg Q6H PRN Administration Pain - Exam General Appearance: awake alert Eye: anicteric sclera ENT: normocephalic atraumatic Neck: supple Heart: no murmur Respiratory: CTAB Gastrointestinal: soft, non-tender, non-distended Extremities: no cyanosis Skin: normal turgor Neurological: cranial nerve grossly intact Hosp A/P - Plan NSTEMI With Positive troponin with Chest pain last night s/p transfer to ccu on nitro drip being arranged for cardiac cath Continue aspirin f/u Cath recomendations Intractable RUQ pain with deranged LFT and high lactic acid level on admission GI Evaluation appreciated , pending MRI abdomen , Anti hcv positive , LFT trending down , Continue prn pain tramadol , constipation better , abdominal pain better and improved today H/O Psoriatic arthritis Continue prn pain meds DVT/GI prophaylxis Plan Discussed with pt and nursing staff today
[2019-09-02] MEDS ORDERED: Fentanyl 100 MCG/2 ML VIAL ONE (10:50)
[2019-09-02] MEDS ORDERED: Midazolam HCl 2 mg/2 ml Vial ONE (10:50)
[2019-09-02] MEDS ORDERED: Iopamidol 370 76% 100 ML VIAL ONE (10:51)
[2019-09-02 11:00] LABS: Hep C PCR-Quant HCV Not Detected IU/mL (.)
[2019-09-02] MEDS ORDERED: Nitroglycerin 0.4 MG TAB (25 Tab Bottle) SL PRN (11:39)
[2019-09-02] MEDS ORDERED: Sodium Chloride 0.9% 200 ML IV PRN (11:39)
[2019-09-02] MEDS ORDERED: Acetaminophen/Codeine 30-300mg Tablet PO PRN (11:39)
[2019-09-02] MEDS ORDERED: Carvedilol 6.25 MG TAB PO SCH ×3 (14:45→21:00)
--- NOTE | 2019-09-02 16:43 | EKG ---
Test Reason : Blood Pressure : / mmHG Vent. Rate : 095 BPM Atrial Rate : 095 BPM P-R Int : 138 ms QRS Dur : 090 ms QT Int : 360 ms P-R-T Axes : 048 035 040 degrees QTc Int : 452 ms Normal sinus rhythm Inferior infarct , age undetermined Abnormal ECG Confirmed by CORINNE CARROLL ([id number]) on 09/02/2019 4:43:11 PM Referred By: Confirmed By:CORINNE CARROLL
--- NOTE | 2019-09-02 22:50 | PRG ---
DATE OF SERVICE: 09/02/2019 SUBJECTIVE: Yesterday evening after the patient took Mag citrate, he did have some bowel movement, but feels like it was small and incomplete. Feels like his stools are not right and there is something wrong in his abdomen. He did eat a few bites of dinner after taking the laxative yesterday and is started having chest pain. This pain is different than the pain he had up until that point. He was found to have an acute non-ST elevation [place] and was transferred to the ICU and underwent cardiac catheterization today. There was an occlusion of a distal branch of the circumflex that did not quite require further treatment. There was also a 50% to 60% LAD lesion. He still has some residual chest pain and he also complains of abdominal discomfort. He also reports that he has had some trouble swallowing solids with food getting stuck in the substernal area over the last 4 weeks. OBJECTIVE: VITAL SIGNS: Temperature 98.7, pulse 89, blood pressure 137/96. GENERAL: He is in no acute distress. Alert and oriented x3. LUNGS: Clear to auscultation bilaterally. HEART: Regular rate and rhythm without murmur. ABDOMEN: Very soft. There is no guarding. He does report some vague tenderness in the lower abdomen to right side of the abdomen, but no significant tenderness on inspiration with palpation of the right upper quadrant. No epigastric tenderness at this time. EXTREMITIES: No lower extremity edema. LABORATORY DATA: White blood cell count 17.2, hemoglobin 14.6, platelets 197. Bilirubin 1.7, AST 77, ALT 108, alkaline phosphatase 85, creatinine 0.72. IMPRESSION: 1. Acute [id number]-BR-vsanlebcl myocardial infarction last night, status post heart catheterization today. There is no stentable lesion. 2. He presented with periumbilical abdominal pain and right upper quadrant abdominal pain. CT scan did show a retained stool over in the ascending colon. He also had elevated liver tests associated with this and primary common bile duct stone is also considered. He was given laxatives last night and he did have some stool output; however, he still reports abdominal discomfort. His abdomen is very soft and nondistended. 3. Esophageal dysphagia. The patient does report solid-food dysphagia in the substernal region over the last 4 weeks. 4. Constipation, which is also new over the last couple of weeks. RECOMMENDATIONS: 1. When able, we will plan to follow through with the MRCP to rule out a primary bile duct stone. 2. MiraLAX daily. 3. He should undergo EGD and colonoscopy in the future for evaluation of his symptoms. This will be delayed given the acute myocardial infarction. I would not anticipate these procedures to be done in this hospitalization. If a gallstone however is identified in the bile duct, he will likely need ERCP more immediately. 4. Recheck liver tests. Follow trend of the liver tests. Job ID: [id number]
[2019-09-03] MEDS: traMADol HCl 50 MG TAB PO PRN ×3 (01:42→21:50)
[2019-09-03] MEDS: Morphine 2 MG/ML SYRINGE SLOW IVP PRN ×2 (03:13→09:08)
[2019-09-03] MEDS: metroNIDAZOLE 500 MG in Premix Bag 1 BAG IVPB SCH ×3 (03:13→19:53)
[2019-09-03] MEDS: Sodium Chloride 0.9% 1,000 ML IV SCH ×2 (04:44→08:40)
[2019-09-03 05:28] LABS: #Eosinphils 0.8 thou/uL (0.0-0.7); #Lymphocytes 2.3 thou/uL (1.20-3.40); #Monocytes 2.2 thou/uL (0.11-0.59); %Basophils 0.1 % (0.0-1.0); %Lymphocytes 13.8 % (21.0-51.0); %Monocytes 13.7 % (0.0-10.0); %Neutrophils 67.5 % (42.0-75.0); Hemoglobin 14.2 g/dL (14.0-18.0); Mean Corpuscular HGB CONC 34.8 g/dL (32.0-36.0); Mean Corpuscular Hemoglobin 33.5 pg (27.0-31.0); Mean Corpuscular Volume 96.2 fL (78.0-98.0); Mean Platelet Volume 7.7 fL (7.4-10.4); Platelet Count 178 thou/uL (130-400); RBC Distribution Width 11.3 % (11.5-14.5); Red Blood Cell (RBC) Count 4.25 mill/uL (4.70-6.10); White Blood Cell (WBC) Count 16.3 thou/uL (4.8-10.8)
[2019-09-03 05:51] LABS: ALT (SGPT) 70 U/L (8-55); AST (SGOT) 55 U/L (5-34); Albumin 3.5 g/dL (3.4-4.8); Alkaline Phosphatase 69 U/L (40-110); Anion Gap 10 mmol/L (10-20); BUN (Urea Nitrogen) 9 mg/dL (8.4-25.7); Bilirubin, Total 1.2 mg/dL (0.2-1.2); Calc. Creatinine Clearance 140 mL/min (70-130); Calcium 8.5 mg/dL (7.8-10.44); Carbon Dioxide 28 mmol/L (23-31); Chloride 100 mmol/L (98-107); Estimated GFR-MDRD Greater than 90; Globulin 2.5 g/dL (2.4-3.5); Glucose 103 mg/dL (80-115); Potassium 3.5 mmol/L (3.5-5.1); Sodium 134 mmol/L (136-145)
[2019-09-03] MEDS ORDERED: Sodium Chloride 0.9% 1,000 ML IV SCH ×2 (07:30→09:15)
[2019-09-03 07:45] LABS: Hemoglobin 12.9 g/dL (14.0-18.0); Mean Corpuscular HGB CONC 34.3 g/dL (32.0-36.0); Mean Corpuscular Hemoglobin 33.5 pg (27.0-31.0); Mean Corpuscular Volume 97.6 fL (78.0-98.0); Mean Platelet Volume 7.5 fL (7.4-10.4); Platelet Count 217 thou/uL (130-400); RBC Distribution Width 11.4 % (11.5-14.5); Red Blood Cell (RBC) Count 3.84 mill/uL (4.70-6.10); White Blood Cell (WBC) Count 15.2 thou/uL (4.8-10.8)
[2019-09-03 08:00] LABS: Hemoglobin 12.9 g/dL (14.0-18.0); Mean Corpuscular HGB CONC 34.3 g/dL (32.0-36.0); Mean Corpuscular Hemoglobin 33.5 pg (27.0-31.0); Mean Corpuscular Volume 97.6 fL (78.0-98.0); Mean Platelet Volume 7.5 fL (7.4-10.4); Platelet Count 217 thou/uL (130-400); RBC Distribution Width 11.4 % (11.5-14.5); Red Blood Cell (RBC) Count 3.84 mill/uL (4.70-6.10); White Blood Cell (WBC) Count 15.2 thou/uL (4.8-10.8)
--- NOTE | 2019-09-03 08:05 | PDOC.HOSPP ---
- Subjective Encounter Date: 09/03/19 Subjective: Pt seen had Right UQ pain with sweating Low BP Systolic 70 and HR 100 , ekg stat done at bed site no acute changes - Objective Vital Signs & Weight: Vital Signs (12 hours) Temp BP 09/03/19 04:00 98.2 F 09/03/19 00:00 98.2 F 09/02/19 20:26 153/107 H Weight Weight 196 lb 12.8 oz Most Recent Monitor Data Heart Rate from ECG 82 NIBP 158/110 NIBP BP-Mean 126 Respiration from ECG 22 SpO2 95 I&O: 09/02/19 09/03/19 09/04/19 06:59 06:59 06:59 Intake Total 2654 2050 Output Total 150 2300 Balance 2504 -250 Result Diagrams: 09/03/19 07:37 09/03/19 05:06 Additional Labs: Accuchecks 09/03/19 07:11 POC Glucose 109 Hospitalist ROS - Review of Systems Constitutional: reports: sweats Eyes: denies: pain ENT: denies: ear pain Respiratory: denies: cough Cardiovascular: denies: chest pain Gastrointestinal: reports: abdominal pain Genitourinary: denies: dysuria Musculoskeletal: denies: neck pain Neurological: denies: weakness - Medication Medications: Active Medications Generic Name Dose Route Start Last Admin Trade Name Freq PRN Reason Stop Dose Admin Aspirin 325 mg 08/31/19 09:00 09/02/19 08:14 Ecotrin PO 325 mg DAILY MORAIMA Administration Docusate Sodium 100 mg 09/02/19 09:00 09/02/19 08:15 Colace PO Not Given DAILY MORAIMA Escitalopram Oxalate 10 mg 09/01/19 09:00 09/02/19 08:14 Lexapro PO 10 mg DAILY MORAIMA Administration Hydralazine HCl 10 mg 08/31/19 02:48 08/31/19 12:29 Apresoline SLOW IVP 10 mg Q4H PRN Administration SBP > 180 and HR < 70 Ciprofloxacin/Dextrose 400 mg/ 200 mls @ 200 mls/hr 08/31/19 09:00 09/02/19 21:24 Device IVPB 200 mls Q12HR MORAIMA Administration Metronidazole 500 mg/ Device 100 mls @ 100 mls/hr 09/01/19 20:00 09/03/19 03: 13 IVPB 100 mls 0400,1200,2000 MORAIMA Administration Sodium Chloride 1,000 mls @ 100 mls/hr 09/02/19 08:30 09/03/19 04:44 Normal Saline 0.9% IV 1,000 mls .Q10H MORAIMA Administration Morphine Sulfate 2 mg 08/31/19 02:48 09/03/19 03:13 Morphine SLOW IVP 2 mg Q4H PRN Administration Moderate to Severe Pain (6-10) Polyethylene Glycol 17 gm 09/02/19 09:00 09/02/19 08:15 Miralax PO Not Given DAILY MORAIMA Saccharomyces Boulardii 250 mg 08/31/19 09:00 09/02/19 08:14 Florastor PO 250 mg DAILY MORAIMA Administration Sodium Chloride 10 ml 08/31/19 09:00 09/02/19 20:25 Flush - Normal Saline IVF 10 ml Q12HR MORAIMA Administration Tramadol HCl 50 mg 08/31/19 16:24 09/03/19 01:42 Ultram PO 50 mg Q6H PRN Administration Pain - Exam General Appearance: awake alert, ill appearing Eye: anicteric sclera ENT: normocephalic atraumatic Neck: symmetric Heart: no murmur Respiratory: no wheezes Gastrointestinal - other findings: Tenderness RUQ Abdomen otherwise soft Extremities: no cyanosis Skin: normal turgor Neurological: cranial nerve grossly intact Musculoskeletal: normal tone Psychiatric: normal affect, A&O x 3 Hosp A/P - Plan Recurrent RUQ pain Pt had pain Right UQ this am with low BP 70-80 groin site with out changes , Started IV bolus NS will give another bolus if low BP persistent and IVF resuscitation , ekg with out acute changes , Labs this morning LFT improving from admission base line , Discussed with Dr Mccrary Who is present at bed site and also evaluated pt and I discussed with Dr Phillips on phone performed Stat CTA abdomen and pelvis which showing hemorrhage along greater curvature of stomach and splenic artery pseudoaneurysm , will Hold BP meds , continue montor CBC Q6 HOURLY Discussed findings with DR phillips he will discuss with Radiology and pt may need transfer to tertiary care [facility] for IR intervention , Hold aspirin , lovenox at present NSTEMI With Positive troponin s/p cardiac cath with 100 % OM1 recommended conservative management Continue aspirin , Dr Mccrary performing Echo now Intractable RUQ pain with deranged LFT and high lactic acid level on admission GI Evaluation appreciated , pending MRI abdomen , Anti hcv positive , LFT trending down , Continue prn pain tramadol , constipation better , H/O Psoriatic arthritis Continue prn pain meds DVT/GI prophaylxis Plan Discussed with pt, Dr Mccrary , Dr Phillips and nursing staff
[2019-09-03] MEDS ORDERED: Sodium Chloride 0.9% (PF) 10 ML VIAL FS PRN (08:07)
[2019-09-03 08:14] LABS: Troponin I 15.538 ng/mL (< 0.028)
[2019-09-03 08:18] LABS: Band 1 % (5-11); Eosinophils 4 % (0-10); Lymphocytes 18 % (21-51); MDiff Complete? YES; Monocytes 14 % (0-10); Neutrophil 61 % (42-75); RBC Morphology Normal; Reactive Lymphocytes 2 % (0-10)
[2019-09-03 08:51] LABS: Lactic Acid 2.6 mmol/L (0.5-2.2)
[2019-09-03] MEDS ORDERED: Pantoprazole 40 MG VIAL IVP SCH (09:00)
[2019-09-03] MEDS: Pantoprazole 40 MG VIAL IVP SCH (09:09)
[2019-09-03] MEDS ORDERED: Morphine 2 MG/ML SYRINGE SLOW IVP SCH (09:15)
[2019-09-03] MEDS: Docusate 100 MG CAP PO SCH ×2 (09:22→16:47)
[2019-09-03] MEDS: Escitalopram Oxalate 10 mg Tablet PO SCH (09:22)
--- NOTE | 2019-09-03 09:22 | CT ---
CTA ABDOMEN AND PELVIS WITH IV CONTRAST INDICATIONS: Recurrent abdominal pain TECHNIQUE: Multiple CTA images were obtained of the abdomen and pelvis utilizing IV contrast and 3D reformatted imaging. Axial, coronal and sagittal reformatted images were constructed from the raw data. FINDINGS: ABDOMEN: Lung bases: Small bilateral pleural effusions, left greater than right Liver: No focal lesion. Gallbladder: Surgically absent Pancreas: Normal. Adrenal glands: Stable bilateral adrenal adenomas Spleen: New wedgelike area of diminished opacification involving the posterior aspect of the spleen i s suspicious for splenic infarct Kidneys and ureters: Stable bilateral renal cysts. Lymph nodes:No lymphadenopathy. Free fluid in abdomen:There is been interval development of a hyperdense fluid collection that extend s along the greater curvature of stomach and into the gastrohepatic ligament region. The collection measures approximately 15.2 x 6.5 x 7.3 cm in its greatest mediolateral, AP and craniocaudad dimensio ns respectively. There is been interval development 7 mm pseudoaneurysm off a artery extending into the gastrohepatic ligament, originating from the splenic artery. This is on image 61 of series 4. Thi s appears new from the comparison examination. PELVIS: Small and large bowel: Normal Appendix:Normal Bladder: Decompressed Rectal and perirectal soft tissues:Normal. Reproductive structures: Normal. Free fluid in pelvis: There is moderate hyperdense fluid in the pericolonic gutters and pelvis Lymphadenopathy pelvis: No lymphadenopathy is evident. Osseous structures: There are bilateral pars defects at L5 with grade 1 anterolisthesis. There is sc attered degenerative and osteoarthritic changes. Soft tissues:Normal. VASCULATURE: Aorta: There are moderate vascular calcifications seen involving the visualized vasculature.. No aneu rysmal dilatation is evident. No acute aortic stenosis is noted. Celiac:Normal in caliber without evidence of stenosis or occlusion. SMA:There is mild atherosclerotic thickening involving the proximal SMA Renal arteries:Normal in caliber without evidence of stenosis or occlusion. ADI:There is multifocal areas of severe narrowing involving the mid to distal ADI. Right common iliac artery: Normal in caliber without evidence of stenosis or occlusion. Right external iliac artery: Normal in caliber without evidence of stenosis or occlusion. Right internal iliac artery: Normal in caliber without evidence of stenosis or occlusion. Left common iliac artery: Normal in caliber without evidence of stenosis or occlusion. Left external iliac artery: Normal in caliber without evidence of stenosis or occlusion.. Left internal iliac artery: Normal in caliber without evidence of stenosis or occlusion. Right common femoral artery: Normal in caliber without evidence of stenosis or occlusion. Left common femoral artery: Normal in caliber without evidence of stenosis or occlusion. Additional findings: None. IMPRESSION: 1. 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 There is prominent hemorrhage seen along the greater curvature of the stomach and protruding into the left gastrosplenic region. Findings are susp icious for a pseudoaneurysm with interval bleeding. No active extravasation is seen. There is a new splenic infarct present. 2. Multifocal areas of severe narrowing involving the mid to distal ADI. 3. Findings were called Dr. Mustafa at 9:00 AM on September 03, 2019
[2019-09-03] MEDS: Saccharomyces boulardii 250 MG CAP PO SCH (09:23)
[2019-09-03] MEDS: Polyethylene Glycol 3350 17 GM Packet PO SCH (09:23)
[2019-09-03] MEDS ORDERED: Lidocaine 1% (PF) 30 ML VIAL ONE (10:15)
--- NOTE | 2019-09-03 10:17 | PRG ---
DATE OF SERVICE: 09/03/2019 SUBJECTIVE: Mr. Richard had the onset of severe abdominal pain this morning. It was initially mostly right-sided, but then he says it is all over in his abdomen. His blood pressure also dropped into the 70 systolic after being in the 140 systolic. The patient was in a lot of pain. The patient was not having any chest pain. OBJECTIVE: VITAL SIGNS: On evaluation, the blood pressure was in the 70 systolic range, pulse was over 100. LUNGS: Clear. CARDIAC: Tachycardic for rest, but no murmur, rub, or gallop. ABDOMEN: Complaining of a lot of pain. EXTREMITIES: Warm and dry. DIAGNOSTIC STUDIES: The EKG did not show any acute changes. The right groin looked fine. The CT scan preliminary indicates there is some suspicious for pseudoaneurysm of the splenic artery branch. There was some hemorrhage in that area. No active extravasation. ASSESSMENT: 1. Abdominal pain. 2. CT findings as outlined above. 3. Recent [id number] myocardial infarction, appears related to an occlusion of a branch of the obtuse marginal. PLAN: 1. Surgical therapy is being considered. 2. He received intravenous fluid. 3. He is off all anticoagulants. 4. We will hold anti-platelet drugs. Prognosis guarded. Discussed with the patient and . Job ID: [id number]
[2019-09-03] MEDS ORDERED: Fentanyl 100 MCG/2 ML VIAL ONE (10:52)
--- NOTE | 2019-09-03 11:09 | PRG ---
DATE OF SERVICE: 09/03/2019 SUBJECTIVE: Mr. Richard developed worsening recurrence of right upper quadrant to left upper quadrant abdominal pain today. He has had no nausea or vomiting. He has felt lightheaded and dizzy. OBJECTIVE: VITAL SIGNS: Temperature 98.2, blood pressure 156/102, pulse 72. GENERAL: He is in no acute distress. He is awake and alert, and oriented x3. LUNGS: Clear to auscultation bilaterally. HEART: Regular rate and rhythm without murmur. ABDOMEN: Has increased tenderness today in the upper abdomen. Bowel sounds are present. EXTREMITIES: No lower extremity edema. LABORATORY DATA: White blood cell count 15.2, hemoglobin 12.9, platelets 217. INR 1.1. Bilirubin is down to 1.2. AST 55, ALT 70, alkaline phosphatase 69. Troponin 15. IMPRESSION: 1. Worsening upper abdominal pain today. 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 There is new accumulation of blood in the peritoneal around the greater curvature of the stomach. This is a 15 cm fluid collection with density consistent with blood. 2. Abnormal liver tests. His liver tests are actually improving. CT scan shows an 8 mm bile duct after cholecystectomy. At this point, there is no significant evidence of choledocholithiasis. MRI would be deferred. 3. Myocardial infarction, status post heart catheterization yesterday. No significant disease that could be intervened upon was identified. There was 100% occlusion of a distal obtuse marginal branch. RECOMMENDATIONS: 1. The patient is going for angiogram to evaluate the suspected pseudoaneurysm of the splenic artery branch. Embolization will be planned, if this can be accessed. 2. Otherwise, there is potential for exploratory surgery. Job ID: [id number]
--- NOTE | 2019-09-03 11:46 | CON ---
DATE OF CONSULTATION: 09/03/2019 CONSULTING PHYSICIAN: Maryist . REASON FOR CONSULTATION: Critical care management. HISTORY OF PRESENT ILLNESS: I was asked to see this 64-year-old male, who was placed in the ICU last night for hypotension that occurred after a cardiac catheterization. This morning, he was complaining of some abdominal pain. He was sent for a CT of the abdomen, which shows a large amount of bleeding in the area between the spleen and the curvature of the stomach. 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 I have asked Dr. Préez to see the patient and evaluate and now Dr. Dickey is also involved. Because of the low blood pressure, he was getting IV fluids. I have subsequently asked the nursing staff to go ahead and transfuse him with 2 units of blood, even though his H and H are still normal. PAST MEDICAL HISTORY: 1. Psoriatic arthritis. 2. Hypertension. 3. Chronic hepatitis C. 4. Prostate cancer. 5. Coronary artery disease. PAST SURGICAL HISTORY: Cholecystectomy, prostatectomy, and cardiac catheterization. FAMILY MEDICAL HISTORY: Negative. SOCIAL HISTORY: Nonsmoker. Does not consume alcohol. Does not use illicit drugs. MEDICATIONS: Prior to admission; 1. Lisinopril. 2. Atorvastatin. 3. Lexapro. Current inpatient medications; 1. Cipro. 2. Docusate. 3. Lexapro. 4. Apresoline. 5. Metronidazole. 6. Morphine. 7. Nitroglycerin. 8. Pantoprazole. 9. MiraLAX. 10. Ultram. ALLERGIES: PENICILLIN. REVIEW OF SYSTEMS: Cardiac catheterization performed yesterday basically showed 100% occlusion of the OM, which could not be stented. He is complaining of abdominal pain. He has no chest pain at the current time. PHYSICAL EXAMINATION: VITAL SIGNS: Temperature 98.2, pulse 82, blood pressure currently 93/46, and O2 saturation 95%. GENERAL: He appears uncomfortable. HEENT: Pupils react. Sclerae are anicteric. Oropharynx clear. NECK: No adenopathy or JVD. LUNGS: Clear to auscultation. CARDIAC: S1 and S2. Slightly tachycardic. ABDOMEN: Diffusely tender anteriorly. EXTREMITIES: No clubbing, cyanosis, or edema. IMAGING STUDIES: CT was reviewed. See report chart. LABORATORY DATA: Sodium 134, potassium 3.5, chloride 100, CO2 of 28, BUN 9, creatinine 0.7, and glucose 103. Troponin is 15.5. Amylase 19. White blood cell count 15.2, hematocrit 37.5, and platelet count 217. ASSESSMENT: 1. Intraabdominal bleeding. 2. Abdominal pain secondary to bleeding. 3. Hypotension, likely secondary to the bleeding. PLAN: 1. Even though his H and H are normal, I would go ahead and transfuse blood. This has been ordered. 2. Dr. Pérez and Dr. Dickey have been consulted to evaluate the abdominal situation. The patient may need a laparotomy or embolization of the vessel involved. 3. The patient will need to continue care in the CCU. Job ID: [id number]
[2019-09-03 11:47] LABS: #Eosinphils 0.1 thou/uL (0.0-0.7); #Lymphocytes 1.7 thou/uL (1.20-3.40); #Monocytes 2.1 thou/uL (0.11-0.59); #Neutrophils 14.2 thou/uL (1.40-6.50); %Basophils 0.1 % (0.0-1.0); %Eosinophils 0.6 % (0.0-10.0); %Lymphocytes 9.3 % (21.0-51.0); %Monocytes 11.6 % (0.0-10.0); %Neutrophils 78.3 % (42.0-75.0); Hemoglobin 11.2 g/dL (14.0-18.0); Mean Platelet Volume 7.4 fL (7.4-10.4); Platelet Count 184 thou/uL (130-400); RBC Distribution Width 11.3 % (11.5-14.5); Red Blood Cell (RBC) Count 3.19 mill/uL (4.70-6.10); White Blood Cell (WBC) Count 18.2 thou/uL (4.8-10.8)
[2019-09-03] MEDS ORDERED: ISOVUE-370 76%-LOCM 1 ML ONE (12:00)
[2019-09-03] MEDS: Morphine 2 MG/ML SYRINGE SLOW IVP SCH ×2 (12:35→15:23)
--- NOTE | 2019-09-03 12:54 | CON ---
DATE OF CONSULTATION: HISTORY OF PRESENT ILLNESS: This is a 64-year-old admitted a couple of days ago with periumbilical abdominal pain. He was noted to have an elevated troponin and was taken to the biology laboratory assistant where he was found to have a small branch of the circumflex occluded with a 50% LAD. A CT scan of his abdomen was unremarkable. This morning, he had an episode of hypotension with a fall in hemoglobin by 2 g and increased abdominal pain and a repeat CT showed a hematoma in his perigastric area with a suspected pseudoaneurysm off a branch of the splenic artery. I have been asked to embolize this area. There was no active extravasation on CT scan. PAST MEDICAL HISTORY: Includes treated hepatitis C with some nodules in the liver, but no overt cirrhosis and he has been followed primarily at the [facility] for this. He was scheduled for an upper endoscopy later this month. He has had a history of a cholecystectomy about 8 years ago. HOME MEDICATIONS: Included lisinopril 20 and Lexapro 10. SOCIAL HISTORY: He is . He smokes a pack a day and he drinks a couple of beers on occasion. PHYSICAL EXAMINATION: VITAL SIGNS: He is a gentleman at 6 feet 2 inches, 196 pounds, heart rate 90, blood pressure 100 systolic. GENERAL: He is in some abdominal discomfort. LUNGS: Clear to auscultation. CARDIAC: Tachycardia. ABDOMEN: No acute abdominal findings, although he is tender to palpation in the epigastrium and left upper quadrant area. He has palpable femoral pulses as well as pedal pulses bilaterally and no peripheral edema. PLAN: At this time is for angiography and informed consent has been obtained from the patient and his . Job ID: [id number] [facility]
[2019-09-03] MEDS ORDERED: Iopamidol 370 76% 50 ML VIAL FS ONE (13:17)
[2019-09-03 13:59] LABS: Hemoglobin 11.6 g/dL (14.0-18.0)
--- NOTE | 2019-09-03 14:07 | OP ---
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 PROCEDURES PERFORMED: Abdominal aortography with selective splenic angiography and embolization of the superior and inferior branch of the splenic artery. ANESTHESIA: Local with sedation. CONTRAST: 32 mL. FLUOROSCOPY: 19.4 minutes. DESCRIPTION OF PROCEDURE: After prepping and draping the left groin, ultrasound-guided puncture was carried out. Wire was passed. Following which, 5-Andorran sheath was placed and a pigtail catheter was advanced into the abdominal aorta where AP projection images were obtained showing the splenic artery. Following this, using lateral and AP projections and a glide catheter and a Angela wire, the Angela wire was advanced into the splenic artery and the catheter was advanced over this wire. Following this, selective angiography of the splenic artery was obtained. Following this, an angled microcatheter was advanced with a Luge wire and positioned in the superior branch to the splenic artery, which was the vessel responsible for the pseudoaneurysm reported on CT scan. 4 x 8 coils x2 and then a 3 x 6 coil were placed here. Following this, the catheter was withdrawn and advanced into the lower pole splenic artery, which also sent a branch into the region of the believed hemorrhage and this branch was coiled with a 3 x 6 coil. Following this, catheter was withdrawn into the main lower pole branch where a 5 x 8 coil was placed. Following this, angiography was performed showing no flow past the superior pole coils and diminished flow in the lower pole branch. Angiography was then obtained as the catheter was withdrawn including the hepatic artery takeoff and no other suspicious areas were identified. The patient tolerated the procedure well. Job ID: [id number]
[2019-09-03] MEDS ORDERED: Morphine 2 MG/ML SYRINGE SLOW IVP PRN (15:27)
--- NOTE | 2019-09-03 19:44 | CON ---
DATE OF CONSULTATION: 09/03/2019 HISTORY OF PRESENT ILLNESS: Jay Richard is a 64-year-old male patient, admitted to the hospital on 08/31/2019, with lower chest epigastric upper abdominal pain, back radiation. The patient has a history of hypertension, prostate cancer status post prostatectomy, hepatitis C treated status post treatment at [facility]. He was found to have a non-ST GA and seen by Dr. Mccrary, and cardiac cath revealed OM lesion , and decision was to treat him medically. Dr. Pepper saw the patient on 08/31/2019, date of admission, for his abdominal pain and elevated LFTs. He noted past history of psoriatic arthritis. The patient denied any past history of trauma or falls. On admission 08/30/2019, CT scan abdomen and pelvis was unremarkable. The patient was monitored in the ICU on 09/01/2019, two days ago, he had a CT dissection protocol that suggested a pseudoaneurysm of the splenic artery branch. The patient became hypotensive this morning, dropping pressures in the 60s to 70s, says he sat on edge of the bed and became very pale. His hemoglobin had dropped from 15 to 12. He was given 2 L bolus; after which, his blood pressure improved. CT scan abdomen and pelvis with IV contrast repeated and revealed new wedge-like area of diminished opacification in the posterior aspect of the spleen suspicious for splenic infarct and he had quite a bit of bloody fluid in the greater curvature of stomach and surrounding his spleen. I was called by Dr. Johnson to see him. Dr. Mccrary is evaluating him, but again, the patient denied any trauma or precipitating event. At the time I saw him, systolic pressure was in the 90s, and the patient was complaining of significant amount of upper abdominal pain, back radiation. After seeing the patient, I examined him and I discussed with Dr. Dickey, and arteriography was performed and embolization of splenic branches to the __ were embolized. ALLERGIES: PENICILLIN. SOCIAL HISTORY: Tobacco cessation several months ago, 1/2 pack per day. Prior alcohol occasionally. HOME MEDICATIONS: Lisinopril, Lexapro, Toradol. PAST SURGICAL HISTORY: Laparoscopic cholecystectomy, prostatectomy for prostate cancer. PAST MEDICAL HISTORY: Hypertension; recent myocardial infarction with cardiac catheterization, Dr. Mccrary, medical management, OM occlusion; prostate cancer, status post prostatectomy; hepatitis C, treated at [facility]. REVIEW OF SYSTEMS: Ten-point noncontributory. PHYSICAL EXAMINATION: VITAL SIGNS: Heart rate 97 to 100, blood pressure 99/75, MAP 83. HEAD, EYES, EARS, NOSE, AND THROAT: Unremarkable. Sclerae not icteric. LUNGS: Clear to auscultation. CARDIAC: Regular rhythm. No murmur or gallop. ABDOMEN: Soft. Mild tenderness in the upper abdomen without peritoneal signs. Bowel sounds present. Lower abdomen, soft. EXTREMITIES: Unremarkable. LABORATORY DATA: Hemoglobin on admission 15, this morning 11.2. White count 18. Basic metabolic profile normal. Now, the patient did receive full-dose of Lovenox round the time. He was being evaluated for his GA. ASSESSMENT AND PLAN: Intraabdominal hemorrhage. There was no evidence of extravasation or blush during the recent CT scan. I have discussed with Dr. Dickey and arteriography and embolization were performed, embolized in the gastroepiploic branches of the splenic artery. There was no blush seen on arteriography. The splenic artery was not embolized. PLAN/OBSERVATION: 1. Follow serial hemoglobins. 2. Coronary artery disease, status post recent GA, treated medically with recent cardiac cath, Dr. Mccrary. 3. Hepatitis C, status post treatment at [facility]. 4. History of tobacco abuse. Tobacco cessation several months ago. 5. Hypertension. 6. History of prostate cancer. Job ID: [id number] [facility]
[2019-09-03 21:40] LABS: #Eosinphils 0.2 thou/uL (0.0-0.7); #Lymphocytes 1.8 thou/uL (1.20-3.40); #Monocytes 1.9 thou/uL (0.11-0.59); #Neutrophils 10.3 thou/uL (1.40-6.50); %Basophils 0.1 % (0.0-1.0); %Eosinophils 1.7 % (0.0-10.0); %Lymphocytes 12.7 % (21.0-51.0); %Monocytes 13.3 % (0.0-10.0); %Neutrophils 72.2 % (42.0-75.0); Hemoglobin 9.9 g/dL (14.0-18.0); Mean Corpuscular HGB CONC 34.6 g/dL (32.0-36.0); Mean Corpuscular Hemoglobin 33.7 pg (27.0-31.0); Mean Corpuscular Volume 97.2 fL (78.0-98.0); Mean Platelet Volume 7.4 fL (7.4-10.4); Platelet Count 189 thou/uL (130-400); RBC Distribution Width 11.2 % (11.5-14.5); Red Blood Cell (RBC) Count 2.94 mill/uL (4.70-6.10); White Blood Cell (WBC) Count 14.3 thou/uL (4.8-10.8)
[2019-09-04] MEDS: Sodium Chloride 0.9% 1,000 ML IV SCH ×2 (02:03→21:13)
[2019-09-04 04:06] LABS: Hemoglobin 9.4 g/dL (14.0-18.0); Mean Corpuscular Hemoglobin 33.7 pg (27.0-31.0); Mean Corpuscular Volume 96.3 fL (78.0-98.0); Mean Platelet Volume 7.4 fL (7.4-10.4); Platelet Count 184 thou/uL (130-400); RBC Distribution Width 11.2 % (11.5-14.5); Red Blood Cell (RBC) Count 2.79 mill/uL (4.70-6.10); White Blood Cell (WBC) Count 13.6 thou/uL (4.8-10.8)
[2019-09-04 04:07] LABS: Eosinophils 5 % (0-10); Lymphocytes 8 % (21-51); MDiff Complete? YES; Monocytes 10 % (0-10); Neutrophil 77 % (42-75); Platelet Morphology Comment Appears Adequate
[2019-09-04 04:13] LABS: ALT (SGPT) 42 U/L (8-55); AST (SGOT) 29 U/L (5-34); Albumin 2.9 g/dL (3.4-4.8); Alkaline Phosphatase 55 U/L (40-110); Anion Gap 11 mmol/L (10-20); BUN (Urea Nitrogen) 10 mg/dL (8.4-25.7); Bilirubin, Total 0.7 mg/dL (0.2-1.2); Calc. Creatinine Clearance 138 mL/min (70-130); Calcium 7.9 mg/dL (7.8-10.44); Carbon Dioxide 25 mmol/L (23-31); Chloride 104 mmol/L (98-107); Estimated GFR-MDRD Greater than 90; Glucose 110 mg/dL (80-115); Potassium 3.6 mmol/L (3.5-5.1); Protein, Total 4.9 g/dL (5.8-8.1); Sodium 136 mmol/L (136-145)
[2019-09-04] MEDS: metroNIDAZOLE 500 MG in Premix Bag 1 BAG IVPB SCH (04:32)
[2019-09-04] MEDS: Pantoprazole 40 MG VIAL IVP SCH (08:40)
[2019-09-04] MEDS: Docusate 100 MG CAP PO SCH (08:40)
[2019-09-04] MEDS: Escitalopram Oxalate 10 mg Tablet PO SCH (08:40)
--- NOTE | 2019-09-04 08:40 | PRG ---
DATE OF SERVICE: 09/04/2019 SUBJECTIVE: Mr. Richard feels better today. He is still complaining of some abdominal pain. OBJECTIVE: VITAL SIGNS: Temperature 98.5, pulse 96, blood pressure 123/86, O2 saturation 96% on room air. Intake for 24 hours 4560, output 1375. HEENT: Unremarkable. NECK: No adenopathy or JVD. CHEST: Clear to auscultation. CARDIAC: S1, S2. Regular. ABDOMEN: Somewhat tender in the midepigastric region. No rebound. EXTREMITIES: No clubbing, cyanosis, or edema. LABORATORY DATA: White blood cell count 13.6, hematocrit 26.8, hemoglobin 9.4, and platelet count 184. Sodium 136, potassium 3.6, chloride 104, CO2 of 25, BUN 10, creatinine 0.7, glucose 110. ASSESSMENT: 1. Status post myocardial infarction. 2. Status post splenic aneurysmal bleed. 3. Anemia due to blood loss. PLAN: Seems hemodynamically stable at this point. Further disposition will be from the Cardiology and Cardiovascular Surgical teams. Hopefully, he can be transferred out to the floor. Job ID: [id number]
[2019-09-04] MEDS: Polyethylene Glycol 3350 17 GM Packet PO SCH (08:41)
[2019-09-04] MEDS: Saccharomyces boulardii 250 MG CAP PO SCH (08:41)
--- NOTE | 2019-09-04 11:22 | PDOC.HOSPP ---
- Subjective Encounter Date: 09/04/19 Encounter Time: 11:19 Subjective: Mr. Richard was seen today in follow-up of splenic infarct, and NSTEMI. He is complaining of abdominal pain, similar to when he came in. - Objective Vital Signs & Weight: Vital Signs (12 hours) Temp Pulse Pulse BP BP Pulse Ox 09/04/19 11:09 95 106 H 126/88 153/97 H 09/04/19 08:00 97 09/04/19 07:00 98.5 F 09/04/19 04:00 98.4 F 09/04/19 00:00 97.8 F Weight Weight 196 lb 12.8 oz Most Recent Monitor Data Heart Rate from ECG 118 NIBP 131/90 NIBP BP-Mean 103 Respiration from ECG 18 SpO2 98 I&O: 09/03/19 09/04/19 09/05/19 06:59 06:59 05:59 Intake Total 2050 4560 Output Total 2300 1375 500 Balance -250 3185 -500 Result Diagrams: 09/04/19 03:26 09/04/19 03:26 Hospitalist ROS - Medication Medications: Active Medications Generic Name Dose Route Start Last Admin Trade Name Freq PRN Reason Stop Dose Admin Docusate Sodium 100 mg 09/02/19 09:00 09/04/19 08:40 Colace PO 100 mg DAILY MORAIMA Administration Escitalopram Oxalate 10 mg 09/01/19 09:00 09/04/19 08:40 Lexapro PO 10 mg DAILY MORAIMA Administration Hydralazine HCl 10 mg 08/31/19 02:48 08/31/19 12:29 Apresoline SLOW IVP 10 mg Q4H PRN Administration SBP > 180 and HR < 70 Morphine Sulfate 2 mg 09/03/19 15:27 09/04/19 02:02 Morphine SLOW IVP 2 mg Q2H PRN Administration Pain Pantoprazole Sodium 40 mg 09/03/19 09:00 09/04/19 08:40 Protonix IVP 40 mg DAILY MORAIMA Administration Polyethylene Glycol 17 gm 09/02/19 09:00 09/04/19 08:41 Miralax PO 17 gm DAILY MORAIMA Administration Saccharomyces Boulardii 250 mg 08/31/19 09:00 09/04/19 08:41 Florastor PO 250 mg DAILY MORAIMA Administration Sodium Chloride 10 ml 08/31/19 09:00 09/04/19 08:41 Flush - Normal Saline IVF 10 ml Q12HR MORAIMA Administration Tramadol HCl 50 mg 08/31/19 16:24 09/03/19 21:50 Ultram PO 50 mg Q6H PRN Administration Pain - Exam Eye: PERRL Heart: RRR, no murmur, no gallops, no rubs, normal peripheral pulses Respiratory: CTAB, no wheezes, no rales, no ronchi, normal chest expansion Gastrointestinal: soft, non-distended, normal bowel sounds Extremities: no cyanosis, no clubbing, no edema Hosp A/P (1) Splenic infarct Code(s): D73.5 - INFARCTION OF SPLEEN Status: Acute (2) NSTEMI (non-ST elevated myocardial infarction) Code(s): I21.4 - NON-ST ELEVATION (NSTEMI) MYOCARDIAL INFARCTION Status: Acute (3) Abdominal pain Code(s): R10.9 - UNSPECIFIED ABDOMINAL PAIN Status: Acute (4) Hypertension Code(s): I10 - ESSENTIAL (PRIMARY) HYPERTENSION Status: Chronic (5) Hepatitis C Code(s): B19.20 - UNSPECIFIED VIRAL HEPATITIS C WITHOUT HEPATIC COMA Status: Chronic - Plan * Splenic infarct- he is s/p embolization, and his H&H is stable * Abdominal pain- may be related to the recent splenic infarct * NSTEMI- to be treated medically- continue as per Cardiology recommendations * HTN- blood pressure is stable * Elevated LFT's these are beginning to trend back towards normal- ? etiology * He has been cleared for discharge out of the ICU
--- NOTE | 2019-09-04 12:47 | PRG ---
DATE OF SERVICE: 09/04/2019 SUBJECTIVE: Mr. Richard still has some residual soreness in his upper abdomen. He had a brown stool today. No stools yesterday and he had 3 formed stools the day before. He has had no nausea or vomiting. OBJECTIVE: VITAL SIGNS: Blood pressure 153/97, pulse 106, temperature is 98.5. GENERAL: He is in no acute distress. Alert and oriented x3. LUNGS: Clear to auscultation bilaterally. HEART: Tachycardic, S1, S2 without murmur. ABDOMEN: Soft. Minimal tenderness in the upper abdomen without guarding. Bowel sounds are present. EXTREMITIES: No lower extremity edema. IMPRESSION: 1. Abdominal pain and elevated liver tests. His liver tests have returned to normal. His abdominal pain that he came in with has improved. However, he does have some residual soreness in the upper abdomen, likely related to the hemoperitoneum. 2. History of esophageal dysphagia and periumbilical abdominal pain. He eventually should undergo EGD and colonoscopy to evaluate this. However, this can be deferred until further out from his myocardial infarction. He has established GI in [facility] that he already had procedures scheduled with and he will follow up with [facility] for endoscopy in the future. 3. Myocardial infarction. Heart catheterization showed occlusion of a distal obtuse marginal branch that did not require intervention. 4. 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 His hemoglobin is stable today. RECOMMENDATIONS: 1. He should transfer to the floor today. We will continue to monitor his hemoglobin. 2. He will follow up with GI as an outpatient at [facility] for further endoscopic intervention when he is further out from his PA. Job ID: [id number]
[2019-09-04] MEDS: Carvedilol 3.125 MG TAB PO SCH (16:08)
--- NOTE | 2019-09-04 19:50 | PRG ---
DATE OF SERVICE: 09/04/2019 SUBJECTIVE: Jay Richard is doing well today. He feels much better. He has been transferred to telemetry. OBJECTIVE: VITAL SIGNS: Blood pressure 98/68, pulse 96, and respiratory rate 17. His hemoglobin is stable at 9.9 to 9.4. He did receive transfusions yesterday. 136, 3.6, 10, and 0.7. ASSESSMENT AND PLAN: 1. Status post recent myocardial infarction with catheterization, Dr. Mccrayr. 2. Bleeding from the gastroepiploic vessels, left upper quadrant. His hemoglobin is stable now and hemodynamically stable. He feels much better. There is no evidence of ongoing bleeding. Continue monitoring. 3. Hepatitis C, status post treatment at [facility]. Job ID: [id number]
[2019-09-04] MEDS ORDERED: diphenhydrAMINE 25 MG CAP PO PRN (20:36)
[2019-09-04] MEDS: Atorvastatin Calcium 40 MG TAB PO SCH (20:37)
--- NOTE | 2019-09-04 20:56 | CON ---
DATE OF CONSULTATION: 09/03/2019 HISTORY OF PRESENT ILLNESS: Jay Richard, 64-year-old male patient, presented to emergency room 08/30/2019 for abdominal pain. He had upper abdominal pain. He has a history of psoriatic arthritis and hepatitis C which has been treated. The patient on admission had abdominopelvic CAT scan that was unremarkable, 08/30/2019, at 5:18 p.m. The patient was evaluated and appreciated to have an SD and taken to the supervisor laboratory where he was noted to have OM thrombosis and some other minimal disease and Dr. Mccrary tried to treat him medically. The patient on 09/01/2019 complained of pain again and CT scan obtained revealed no additional findings. The patient subsequently on 09/03/2019, developed more severe pain and a repeat CAT scan was obtained revealing some pleural effusions, left greater than right. New wedge-like infarction of the posterior aspect of the spleen and what appeared to be bleeding around the greater curve of the stomach in the gastrohepatic ligament measuring 15 x 6 x 7 cm and a 7 mm pseudoaneurysm of an artery extending to the gastrohepatic ligament of splenic artery. The patient's hemoglobin has dropped from 15-12 and while on the side of the bed he experienced some paleness and orthostasis leading to the CAT scan and further evaluation. Dr. Johnson have asked me to see him regarding the CAT scan findings. The patient has not had such pain before. ALLERGIES: PENICILLIN. SOCIAL HISTORY: Tobacco cessation 6-8 months ago, one and half pack a day prior. HOME MEDICATIONS: 1. Lisinopril. 2. Lexapro. 3. Toradol. PAST SURGICAL HISTORY: Laparoscopic cholecystectomy, prostatectomy. PAST MEDICAL HISTORY: Hypertension, recent myocardial infarction with catheterization, medical management of OM occlusion, prostate cancer, prostatectomy, hepatitis C treated at [facility]. REVIEW OF SYSTEMS: Otherwise noncontributory. PHYSICAL EXAMINATION: VITAL SIGNS: 98/68, 96, 17. HEAD, EARS, EYES, NOSE, AND THROAT: Unremarkable. LUNGS: Clear to auscultation. CARDIAC: Regular rate and rhythm without murmur or gallop. ABDOMEN: Mild tenderness in the epigastrium and left upper quadrant, mild guarding, but no peritoneal signs. Lower abdomen is soft. Bowel sounds are present. LABORATORY DATA: White count 18.2, hemoglobin 11.2 down from 15 on admission, platelet count 184,000. Coag studies are normal. Renal function is normal. ASSESSMENT AND PLAN: Bleeding into his left upper quadrant. I have called Dr. Dickey who will then review the case with him. Plan is for arteriographic evaluation, probably embolization which by the time of this dictation has been performed. Job ID: [id number]
[2019-09-04] MEDS ORDERED: diphenhydrAMINE 25 MG CAP PO SCH (22:00)
[2019-09-05 03:57] LABS: #Basophils 0.1 thou/uL (0.0-0.2); #Eosinphils 0.8 thou/uL (0.0-0.7); #Lymphocytes 2.3 thou/uL (1.20-3.40); #Monocytes 1.3 thou/uL (0.11-0.59); #Neutrophils 6.9 thou/uL (1.40-6.50); %Basophils 0.8 % (0.0-1.0); %Eosinophils 7.2 % (0.0-10.0); %Lymphocytes 19.9 % (21.0-51.0); %Monocytes 11.3 % (0.0-10.0); %Neutrophils 60.7 % (42.0-75.0); Hemoglobin 9.5 g/dL (14.0-18.0); Mean Corpuscular HGB CONC 34.1 g/dL (32.0-36.0); Mean Corpuscular Hemoglobin 32.9 pg (27.0-31.0); Mean Corpuscular Volume 96.5 fL (78.0-98.0); Mean Platelet Volume 7.4 fL (7.4-10.4); Platelet Count 204 thou/uL (130-400); RBC Distribution Width 11.4 % (11.5-14.5); Red Blood Cell (RBC) Count 2.87 mill/uL (4.70-6.10); White Blood Cell (WBC) Count 11.3 thou/uL (4.8-10.8)
[2019-09-05 04:20] LABS: INR-International Normal Ratio 1.2; PTT 29.3 SEC (22.9-36.1); Prothrombin Time 15.3 SEC (12.0-14.7)
[2019-09-05 04:27] LABS: Anion Gap 11 mmol/L (10-20); BUN (Urea Nitrogen) 7 mg/dL (8.4-25.7); Calc. Creatinine Clearance 138 mL/min (70-130); Calcium 8.4 mg/dL (7.8-10.44); Carbon Dioxide 27 mmol/L (23-31); Chloride 104 mmol/L (98-107); Estimated GFR-MDRD Greater than 90; Glucose 124 mg/dL (80-115); Potassium 3.2 mmol/L (3.5-5.1); Sodium 139 mmol/L (136-145)
[2019-09-05 04:28] LABS: D-Dimer Test 4.47 *mcg/mL (0.27-0.43)
[2019-09-05] MEDS ORDERED: Potassium Chloride 20 MEQ TAB PO SCH (07:30)
[2019-09-05] MEDS: Polyethylene Glycol 3350 17 GM Packet PO SCH (07:58)
[2019-09-05] MEDS: Docusate 100 MG CAP PO SCH (07:59)
[2019-09-05] MEDS: Carvedilol 3.125 MG TAB PO SCH ×2 (07:59→17:53)
[2019-09-05] MEDS: Escitalopram Oxalate 10 mg Tablet PO SCH (07:59)
[2019-09-05] MEDS: Saccharomyces boulardii 250 MG CAP PO SCH (07:59)
[2019-09-05] MEDS: Acetaminophen/Codeine 30-300mg Tablet PO PRN ×2 (08:11→12:30)
[2019-09-05] MEDS ORDERED: Enoxaparin Sodium 40 MG/0.4 ML SYRINGE SC SCH (09:00)
--- NOTE | 2019-09-05 10:23 | PDOC.HOSPP ---
- Subjective Encounter Date: 09/05/19 Encounter Time: 10:22 Subjective: Mr. Richard was seen today in follow-up of abdominal pain. He says he woke up this morning in worse abdominal pain than yesterday. He also notes bloating. He says it was not in relationship to eating. He tried eating some breakfast, but continues with pain. He does not admit that the pain was worse. He notes some dysphagia as well. - Objective Vital Signs & Weight: Vital Signs (12 hours) Temp Pulse Resp BP Pulse Ox 09/05/19 07:52 98.1 F 95 20 135/85 96 09/05/19 04:00 98.3 F 92 18 127/80 95 Weight Weight 196 lb 12.8 oz Most Recent Monitor Data Heart Rate from ECG 93 NIBP 117/82 NIBP BP-Mean 93 Respiration from ECG 17 SpO2 97 I&O: 09/04/19 09/05/19 09/06/19 07:59 06:59 06:59 Intake Total Output Total Balance Result Diagrams: 09/05/19 01:42 CARTON STAMPER 09/05/19 01:42 CARTON STAMPER Hospitalist ROS - Medication Medications: Active Medications Generic Name Dose Route Start Last Admin Trade Name Freq PRN Reason Stop Dose Admin Acetaminophen/Codeine Phosphate 2 tab 09/02/19 11:39 09/05/19 08:11 Tylenol #3 PO 2 tab Q4H PRN Administration Moderate Pain (4-6) Atorvastatin Calcium 40 mg 09/04/19 21:00 09/04/19 20:37 Lipitor PO 40 mg HS MORAIMA Administration Carvedilol 3.125 mg 09/04/19 17:00 09/05/19 07:59 Coreg PO 3.125 mg BID-WM MORAIMA Administration Diphenhydramine HCl 25 mg 09/04/19 20:36 09/04/19 20:45 Benadryl PO 25 mg HSPRN PRN Administration Insomnia Docusate Sodium 100 mg 09/02/19 09:00 09/05/19 07:59 Colace PO 100 mg DAILY MORAIMA Administration Escitalopram Oxalate 10 mg 09/01/19 09:00 09/05/19 07:59 Lexapro PO 10 mg DAILY MORAIMA Administration Hydralazine HCl 10 mg 08/31/19 02:48 08/31/19 12:29 Apresoline SLOW IVP 10 mg Q4H PRN Administration SBP > 180 and HR < 70 Morphine Sulfate 2 mg 09/03/19 15:27 09/04/19 02:02 Morphine SLOW IVP 2 mg Q2H PRN Administration Pain Pantoprazole Sodium 40 mg 09/05/19 09:00 09/05/19 07:59 Protonix PO 40 mg DAILY MORAIMA Administration Polyethylene Glycol 17 gm 09/02/19 09:00 09/05/19 07:58 Miralax PO 17 gm DAILY MORAIMA Administration Saccharomyces Boulardii 250 mg 08/31/19 09:00 09/05/19 07:59 Florastor PO 250 mg DAILY MORAIMA Administration Sodium Chloride 10 ml 08/31/19 09:00 09/04/19 20:37 Flush - Normal Saline IVF 10 ml Q12HR MORAIMA Administration Tramadol HCl 50 mg 08/31/19 16:24 09/03/19 21:50 Ultram PO 50 mg Q6H PRN Administration Pain - Exam Eye: PERRL Heart: RRR, no murmur, no gallops, no rubs, normal peripheral pulses Respiratory: CTAB, no wheezes, no rales, no ronchi, normal chest expansion Gastrointestinal: soft, tender to palpation (diffuse abdominal tenderness, out of proportion to exam, bowel sounds are hyperactive Mild distention) Extremities: no cyanosis, no clubbing, no edema Hosp A/P (1) Abdominal pain Code(s): R10.9 - UNSPECIFIED ABDOMINAL PAIN Status: Acute (2) Splenic infarct Code(s): D73.5 - INFARCTION OF SPLEEN Status: Acute (3) NSTEMI (non-ST elevated myocardial infarction) Code(s): I21.4 - NON-ST ELEVATION (NSTEMI) MYOCARDIAL INFARCTION Status: Acute (4) Hypertension Code(s): I10 - ESSENTIAL (PRIMARY) HYPERTENSION Status: Chronic (5) Hepatitis C Code(s): B19.20 - UNSPECIFIED VIRAL HEPATITIS C WITHOUT HEPATIC COMA Status: Chronic - Plan * Abdominal Pain- ? etiology- possible ischemic bowel- will discuss with GI * Hypercoagualtion panel is pending * Splenic infarct- he is s/p embolization, and his H&H is stable * NSTEMI- to be treated medically- continue as per Cardiology recommendations * HTN- blood pressure is stable * Elevated LFT's these are beginning to trend back towards normal- ? etiology
--- NOTE | 2019-09-05 11:52 | PRG ---
DATE OF SERVICE: 09/05/2019 SUBJECTIVE: Jay Richard is complaining of abdominal pain again today. His hemoglobin yesterday morning was 9.4. Another hemoglobin at 0142 hours was 9.5. He has not had any nausea or vomiting. OBJECTIVE: VITAL SIGNS: Temperature 98.1 degrees, heart 95, and blood pressure 135/85. GENERAL: The patient yesterday was doing well, not having abdominal pain. 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 LUNGS: Clear to auscultation. CARDIAC: Regular rate and rhythm without murmur or gallop. ABDOMEN: Soft and mild tenderness in his upper abdomen without peritoneal signs. EXTREMITIES: Unremarkable. LABORATORY DATA: The patient's hepatitis profile positive for hepatitis C antibody. White count is 11 and hemoglobin 9.5. Basic metabolic profile normal. BUN and creatinine, 7 and 0.7. ASSESSMENT AND PLAN: Recurrent abdominal pain. This may be related to his previous bleed. I have reminded him he will have pain occasionally considering his complicated hospital course and unexpected findings. We will repeat his CAT scan of the abdomen and pelvis to assure there are no new findings. We will recheck his hemoglobin today and again in the morning. The patient had recent myocardial infarction, underwent cardiac catheterization, and being treated medically for that. I am told that the patient has been taken medications from home such as hydrocodone and Xanax out of his personal bag. The patient informs me that they were planning at another hospital, I believe, [place], future EGD for his complaints of dysphagia and followup of his hepatitis to assure that he did have secondary changes of cirrhosis. Job ID: [id number]
[2019-09-05] MEDS ORDERED: Iopamidol 370 76% 100 ML VIAL ONE (12:00)
--- NOTE | 2019-09-05 14:04 | PRG ---
DATE OF SERVICE: 09/05/2019 SUBJECTIVE: Mr. Richard did not sleep well last night. This morning, he sat up and had sudden marked worsening pain in the left upper quadrant. This pain went on for a couple of hours and was not quite as severe. Now, he just has some residual soreness. He has had no nausea or vomiting. He had 3 loose stools yesterday. He states that he took Tylenol No.3 with improvement in his pain. This might have been his home medication. OBJECTIVE: VITAL SIGNS: His temperature is 97.4, pulse is 78, blood pressure 119/77. GENERAL: He is in no acute distress. Alert and oriented x3. LUNGS: Clear to auscultation bilaterally. HEART: Regular rate and rhythm without murmur. ABDOMEN: Soft. He has tenderness in the upper abdomen, but no guarding. Bowel sounds are present. EXTREMITIES: No lower extremity edema. LABORATORY DATA: White blood cell count 11.3, hemoglobin 9.5, and platelets 204. INR 1.2. Creatinine 0.7, bilirubin 0.7, AST 29, ALT 42, alkaline phosphatase 55, and albumin 2.9. HCV RNA was negative. IMPRESSION: 1. Abdominal pain on admission, presenting with constipation and periumbilical pain. The quality of his pain is now changed significantly to more of a left upper quadrant pain. 2. Myocardial infarction with heart catheterization showing 100% occlusion of the distal obtuse marginal branch. 3. 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 His current abdominal pain might be related to the blood in the peritoneum. 4. He still complains of upper epigastric discomfort and dysphagia as well. He feels like endoscopy would be helpful to evaluate this. RECOMMENDATIONS: 1. He is receiving a followup CT scan to assess for change in the intraabdominal bleed. His hemoglobin is stable. 2. He should eventually undergo EGD. He keeps developing worsening abdominal pain in the morning and it would be helpful to be able to undergo endoscopy more immediately. We would have to discuss with Cardiology regarding operative risk prior to following through with endoscopy. 3. We will see what the CT scan shows today. He is planned for an oral contrast only CT of the abdomen and pelvis. He has had multiple contrasted studies in this hospital stay. Job ID: [id number]
--- NOTE | 2019-09-05 14:44 | CT ---
CT Abdomen Pelvis W Con History: Abdominal pain Comparison: Abdomen pelvis CT 2 days prior Findings: Small left effusion. No pericardial effusion. There continues to be a pseudoaneurysm branch of the splenic artery which is coiled. The pseudoaneury sm is fed by gastroepiploic vessel. The amount of hemorrhage is not statically increased. The hematoma along the greater curvature stomach has not increased and is slightly decreased. Similar appearance of the paracolic gutter hemorrhage. 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 No free intraperitoneal gas. Impression: Continued visualization of the 7 mm pseudoaneurysm off a small arterial branch from the s plenic artery fed by a gastroepiploic vessel. The amount of clot along the greater curvature stomach is slightly decreased. No significant interval increase of hemorrhage.
[2019-09-05 16:53] LABS: #Basophils 0.1 thou/uL (0.0-0.2); #Eosinphils 0.9 thou/uL (0.0-0.7); #Lymphocytes 1.9 thou/uL (1.20-3.40); #Monocytes 1.5 thou/uL (0.11-0.59); #Neutrophils 7.8 thou/uL (1.40-6.50); %Basophils 0.4 % (0.0-1.0); %Eosinophils 7.1 % (0.0-10.0); %Lymphocytes 15.6 % (21.0-51.0); %Monocytes 12.1 % (0.0-10.0); %Neutrophils 64.7 % (42.0-75.0); Hemoglobin 9.5 g/dL (14.0-18.0); Mean Corpuscular HGB CONC 34.7 g/dL (32.0-36.0); Mean Corpuscular Hemoglobin 33.8 pg (27.0-31.0); Mean Corpuscular Volume 97.2 fL (78.0-98.0); Mean Platelet Volume 7.1 fL (7.4-10.4); Platelet Count 219 thou/uL (130-400); RBC Distribution Width 11.4 % (11.5-14.5); Red Blood Cell (RBC) Count 2.82 mill/uL (4.70-6.10); White Blood Cell (WBC) Count 12.1 thou/uL (4.8-10.8)
[2019-09-05] MEDS: Atorvastatin Calcium 40 MG TAB PO SCH (20:14)
[2019-09-06 04:58] LABS: #Basophils 0.1 thou/uL (0.0-0.2); #Eosinphils 0.7 thou/uL (0.0-0.7); #Lymphocytes 1.9 thou/uL (1.20-3.40); #Monocytes 1.4 thou/uL (0.11-0.59); #Neutrophils 7.8 thou/uL (1.40-6.50); %Basophils 0.5 % (0.0-1.0); %Eosinophils 6.2 % (0.0-10.0); %Lymphocytes 15.9 % (21.0-51.0); %Neutrophils 65.4 % (42.0-75.0); Hemoglobin 8.6 g/dL (14.0-18.0); Mean Corpuscular HGB CONC 34.1 g/dL (32.0-36.0); Mean Corpuscular Hemoglobin 33.2 pg (27.0-31.0); Mean Corpuscular Volume 97.3 fL (78.0-98.0); Mean Platelet Volume 7.5 fL (7.4-10.4); Platelet Count 227 thou/uL (130-400); RBC Distribution Width 11.4 % (11.5-14.5)
[2019-09-06 05:07] LABS: Anion Gap 9 mmol/L (10-20); BUN (Urea Nitrogen) 8 mg/dL (8.4-25.7); Calc. Creatinine Clearance 136 mL/min (70-130); Calcium 8.4 mg/dL (7.8-10.44); Carbon Dioxide 29 mmol/L (23-31); Chloride 104 mmol/L (98-107); Estimated GFR-MDRD Greater than 90; Glucose 100 mg/dL (80-115); Potassium 3.4 mmol/L (3.5-5.1); Sodium 139 mmol/L (136-145)
[2019-09-06] MEDS: Acetaminophen/Codeine 30-300mg Tablet PO PRN ×2 (06:07→17:12)
[2019-09-06] MEDS: Polyethylene Glycol 3350 17 GM Packet PO SCH (09:10)
[2019-09-06] MEDS: Docusate 100 MG CAP PO SCH (09:11)
[2019-09-06] MEDS: Carvedilol 3.125 MG TAB PO SCH ×2 (09:11→17:12)
[2019-09-06] MEDS: Escitalopram Oxalate 10 mg Tablet PO SCH (09:11)
[2019-09-06] MEDS: Saccharomyces boulardii 250 MG CAP PO SCH (09:12)
--- NOTE | 2019-09-06 10:15 | PRG ---
DATE OF SERVICE: 09/06/2019 SUBJECTIVE: Mr. Richard is not having any chest pain today. He has not had any chest pain since last week. He did have severe abdominal pain again yesterday. OBJECTIVE: VITAL SIGNS: Blood pressure is 113/70, pulse 80 and it is regular. LUNGS: Clear. CARDIAC: Normal S1, normal S2. ABDOMEN: Soft, nontender. ASSESSMENT: 1. Recurrent abdominal pain of unclear etiology ? vascular. 2. Small kxl-HV-cvvjvev elevation myocardial infarction related to occlusion of the branch of the obtuse marginal as the patient has normal left ventricular function. 3. Severe intermittent abdominal pain. PLAN: I think it is reasonable to do upper endoscopy. I think the risk from a Cardiac standpoint is low. He has had a recent ova-TK-[id number] elevation myocardial infarction, but it is a branch occlusion. CT scan shows continued pseudoaneurysm of the branch of the splenic artery. Job ID: [id number]
--- NOTE | 2019-09-06 10:51 | PRG ---
DATE OF SERVICE: 09/06/2019 SUBJECTIVE: Mr. Richard feels much better today. He had severe abdominal pain yesterday morning and again a CT scan was performed. 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 The intra-abdominal hematoma had not enlarged. Today, he feels much better. He is passing semi-formed bowel movements and he is tolerating his solid breakfast well. PHYSICAL EXAMINATION: VITAL SIGNS: Temperature is 98.0, pulse 84, and blood pressure 146/80. GENERAL: He is in no acute distress. Alert and oriented x3. LUNGS: Clear to auscultation bilaterally. HEART: Regular rate and rhythm without murmur. ABDOMEN: Soft. Minimal tenderness in the upper abdomen without guarding. Bowel sounds are present. EXTREMITIES: No lower extremity edema. LABORATORY DATA: White blood cell count 12.0, hemoglobin 8.6, platelets 277. INR 1.2, creatinine 0.71. IMPRESSION: 1. Epigastric periumbilical abdominal pain. This could be related to the partial stenosis of the SMA. He has 100% stenosis of the ADI. He has no evidence of ongoing ischemia now, he has been asymptomatic today and tolerating a solid diet well and ambulating and passing semi-formed stools. He has also had esophageal dysphagia and upper abdominal pain and it would be helpful to evaluate for peptic ulcer or esophagitis also contributing to this picture. 2. Intra-abdominal hemorrhage with pseudoaneurysm of the splenic artery branch embolized. His hemoglobin is slightly decreased at 8.6 today. He has no change in his pain today and overall he is doing much better. 3. Abnormal liver function tests previously. His liver tests have returned to normal yesterday. His viral hepatitis screen is negative except for hep C antibody positive with a negative RNA level. He was treated for this previously. He has no obvious signs of cirrhosis by serology. RECOMMENDATIONS: 1. We will plan for upper endoscopy tomorrow due to persistent intermittent upper abdominal pain with the etiology undetermined at this point. He has had a non ST elevation [place] initially with heart catheterization showing a distal obtuse marginal occlusion. He has been evaluated by Cardiology and is felt to be low risk for anesthesia at this point. Endoscopy can also evaluate his esophageal dysphagia symptoms that he has had over last month. 2. If endoscopy is clear, then he should be able to discharge home in the next couple of days. 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 Job ID: [id number]
--- NOTE | 2019-09-06 11:25 | EKG ---
Test Reason : CHEST PAIN Blood Pressure : / mmHG Vent. Rate : 106 BPM Atrial Rate : 106 BPM P-R Int : 122 ms QRS Dur : 084 ms QT Int : 364 ms P-R-T Axes : 050 080 -28 degrees QTc Int : 483 ms Sinus tachycardia Inferior infarct (cited on or before 30-AUG-2019) T wave abnormality, consider lateral ischemia Abnormal ECG Confirmed by CORINNE CARROLL ([id number]) on 09/06/2019 11:25:25 AM Referred By: GISELLE Confirmed By:CORINNE CARROLL
[2019-09-06 14:09] LABS: Amphetamine Not Detected (NotDetected); Barbiturates Screen Not Detected (NotDetected); Benzodiazepine Screen Detected (NotDetected); Cocaine Metabolite Screen Not Detected (NotDetected); Medtox Reader # READER 4; Methadone Not Detected (NotDetected); Methamphetamine Not Detected (NotDetected); Opiate Screen Not Detected (NotDetected); Phencyclidine (PCP) Not Detected (NotDetected); THC/Cannabinoid Screen Detected (NotDetected); Tricyclic Screen Not Detected (NotDetected)
[2019-09-06 14:10] LABS: Medtox Control Line Valid? VALID (VALID); Oxycodone Screen Not Detected (NotDetected)
[2019-09-06 14:16] LABS: Cardiolipin IgA Ab 1.6 APL-U/mL (<14 Negative); Cardiolipin IgM Ab 5.9 MPL-U/mL (<10 Negative); EliA APS New Method **** NEW METHOD ****
--- NOTE | 2019-09-06 14:40 | PRG ---
DATE OF SERVICE: 09/06/2019 SUBJECTIVE: Jay Richard is doing better today. His pain is much less. Dr. Evans planned upper endoscopy tomorrow. He has had problems with dysphagia and this was planned at another facility in the future and we will have that done here especially considering the events noted. OBJECTIVE: VITAL SIGNS: Temperature 98.3 degrees, pulse 76, blood pressure 113/72. LUNGS: Clear to auscultation. CARDIAC: Rate and rhythm regular. No murmur or gallop. ABDOMEN: Soft. Mild tenderness in left upper quadrant. LABORATORY DATA: Hemoglobin is stable at 8.6. Basic metabolic profile unremarkable. CAT scan yesterday revealed resolving lesser sac blood and successfully coiled gastroepiploic vessel of splenic artery branch. ASSESSMENT AND PLAN: 1. Status post lesser sac hemorrhage from splenic artery branch, status post embolization. Hemoglobin is stable. Have told the patient he will be having intermittent pain for a while as his body restores his blood. 2. Coronary artery disease, treated medically, status post catheterization. 3. In need of EGD number. At this point, I will see him as needed. Dr. Sifuentes is covering. Please call if necessary. Job ID: [id number]
[2019-09-06] MEDS: Atorvastatin Calcium 40 MG TAB PO SCH (20:56)
[2019-09-07] MEDS: Acetaminophen/Codeine 30-300mg Tablet PO PRN ×2 (00:03→20:06)
[2019-09-07 04:59] LABS: #Basophils 0.1 thou/uL (0.0-0.2); #Eosinphils 0.8 thou/uL (0.0-0.7); #Lymphocytes 2.2 thou/uL (1.20-3.40); #Monocytes 1.3 thou/uL (0.11-0.59); #Neutrophils 8.7 thou/uL (1.40-6.50); %Basophils 0.4 % (0.0-1.0); %Eosinophils 6.3 % (0.0-10.0); %Lymphocytes 17.1 % (21.0-51.0); %Monocytes 10.1 % (0.0-10.0); %Neutrophils 66.1 % (42.0-75.0); Hemoglobin 9.4 g/dL (14.0-18.0); Mean Corpuscular HGB CONC 34.8 g/dL (32.0-36.0); Mean Corpuscular Hemoglobin 33.8 pg (27.0-31.0); Mean Corpuscular Volume 97.2 fL (78.0-98.0); Mean Platelet Volume 7.4 fL (7.4-10.4); Platelet Count 276 thou/uL (130-400); RBC Distribution Width 11.7 % (11.5-14.5); Red Blood Cell (RBC) Count 2.78 mill/uL (4.70-6.10); White Blood Cell (WBC) Count 13.1 thou/uL (4.8-10.8)
[2019-09-07] MEDS: Carvedilol 3.125 MG TAB PO SCH ×2 (06:11→16:21)
--- NOTE | 2019-09-07 10:29 | PRG ---
DATE OF SERVICE: 09/07/2019 SUBJECTIVE: Mr. Richard is doing well. He is awaiting upper endoscopy. He feels fine. No complaints. OBJECTIVE: VITAL SIGNS: Blood pressure 118/73, pulse 80 and it is regular. LUNGS: Clear. CARDIAC: Normal S1. Normal S2. ASSESSMENT: 1. Status post small [id number]-GN-[id number] myocardial infarction. 2. Mild hypokalemia, potassium 3.4. 3. Gastrointestinal evaluation, continues with upper endoscopy. PLAN: 1. Replete potassium. 2. Upper endoscopy today. Job ID: [id number]
[2019-09-07] MEDS ORDERED: PROPOFOL 200 MG/20 ML VIAL ONE (12:55)
[2019-09-07] MEDS: Polyethylene Glycol 3350 17 GM Packet PO SCH (14:05)
[2019-09-07] MEDS: Escitalopram Oxalate 10 mg Tablet PO SCH (14:06)
[2019-09-07] MEDS: Saccharomyces boulardii 250 MG CAP PO SCH (14:06)
[2019-09-07] MEDS: Docusate 100 MG CAP PO SCH (14:07)
--- NOTE | 2019-09-07 16:27 | PDOC.HOSPP ---
- Subjective Encounter Date: 09/07/19 Encounter Time: 16:26 Subjective: Mr. Richard was seen today in follow-up of Abdominal pain, recent splenic infarct, and NSTEMI. He is back from EGD. He does not have any new complaints. - Objective Vital Signs & Weight: Vital Signs (12 hours) Temp Pulse Resp BP Pulse Ox 09/07/19 16:18 99.6 F 91 16 105/62 97 09/07/19 13:18 98.3 F 86 16 131/83 98 09/07/19 08:36 97.8 F 80 16 118/73 96 09/07/19 08:30 96 Weight Weight 205 lb 8 oz Most Recent Monitor Data Heart Rate from ECG 93 NIBP 117/82 NIBP BP-Mean 93 Respiration from ECG 17 SpO2 97 I&O: 09/06/19 09/07/19 09/08/19 06:59 06:59 06:59 Intake Total 1860 2167 Balance 1860 2167 Result Diagrams: 09/07/19 04:32 09/06/19 04:34 Hospitalist ROS - Medication Medications: Active Medications Generic Name Dose Route Start Last Admin Trade Name Freq PRN Reason Stop Dose Admin Acetaminophen/Codeine Phosphate 2 tab 09/02/19 11:39 09/07/19 00:03 Tylenol #3 PO 2 tab Q4H PRN Administration Moderate Pain (4-6) Atorvastatin Calcium 40 mg 09/04/19 21:00 09/06/19 20:56 Lipitor PO 40 mg HS MORAIMA Administration Carvedilol 3.125 mg 09/04/19 17:00 09/07/19 16:21 Coreg PO 3.125 mg BID-WM MORAIMA Administration Diphenhydramine HCl 25 mg 09/04/19 20:36 09/04/19 20:45 Benadryl PO 25 mg HSPRN PRN Administration Insomnia Docusate Sodium 100 mg 09/02/19 09:00 09/07/19 14:07 Colace PO 100 mg DAILY MORAIMA Administration Escitalopram Oxalate 10 mg 09/01/19 09:00 09/07/19 14:06 Lexapro PO 10 mg DAILY MORAIMA Administration Hydralazine HCl 10 mg 08/31/19 02:48 08/31/19 12:29 Apresoline SLOW IVP 10 mg Q4H PRN Administration SBP > 180 and HR < 70 Morphine Sulfate 2 mg 09/03/19 15:27 09/04/19 02:02 Morphine SLOW IVP 2 mg Q2H PRN Administration Pain Pantoprazole Sodium 40 mg 09/05/19 09:00 09/07/19 14:06 Protonix PO 40 mg DAILY MORAIMA Administration Polyethylene Glycol 17 gm 09/02/19 09:00 09/07/19 14:05 Miralax PO 17 gm DAILY MORAIMA Administration Potassium Chloride 40 meq 09/07/19 17:00 09/07/19 16:21 K-Dur PO 09/07/19 18:00 40 meq 1700 MORAIMA Administration Saccharomyces Boulardii 250 mg 08/31/19 09:00 09/07/19 14:06 Florastor PO 250 mg DAILY MORAIMA Administration Sodium Chloride 10 ml 08/31/19 09:00 09/07/19 14:07 Flush - Normal Saline IVF 10 ml Q12HR MORAIMA Administration Tramadol HCl 50 mg 08/31/19 16:24 09/03/19 21:50 Ultram PO 50 mg Q6H PRN Administration Pain - Exam Heart: RRR, no murmur, no gallops, no rubs, normal peripheral pulses Respiratory: CTAB, no wheezes, no rales, no ronchi, normal chest expansion, no tachypnea, normal percussion Gastrointestinal: soft, non-tender, non-distended, normal bowel sounds, no palpable masses, no hepatomegaly, no splenomegaly Extremities: no cyanosis, no edema Hosp A/P (1) Abdominal pain Code(s): R10.9 - UNSPECIFIED ABDOMINAL PAIN Status: Acute (2) Splenic infarct Code(s): D73.5 - INFARCTION OF SPLEEN Status: Acute (3) NSTEMI (non-ST elevated myocardial infarction) Code(s): I21.4 - NON-ST ELEVATION (NSTEMI) MYOCARDIAL INFARCTION Status: Acute (4) Hypertension Code(s): I10 - ESSENTIAL (PRIMARY) HYPERTENSION Status: Chronic (5) Hepatitis C Code(s): B19.20 - UNSPECIFIED VIRAL HEPATITIS C WITHOUT HEPATIC COMA Status: Chronic - Plan * Abdominal Pain- ? etiology- EGD was essentially negative * Hypercoagualtion panel is pending * Splenic infarct- he is s/p embolization, and his H&H is stable * NSTEMI- to be treated medically- continue as per Cardiology recommendations * HTN- blood pressure is stable * Hopefully home tomorrow if tolerating his diet
--- NOTE | 2019-09-07 16:39 | OP ---
DATE OF PROCEDURE: 09/07/2019 PROCEDURE PERFORMED: Esophagogastroduodenoscopy with dilatation of esophagus with Ibrahim dilator, 54-Mongolian. PREPROCEDURE DIAGNOSES: 1. Vague dysphagia for several years, some of which sounds spasmodic with liquids, but other sounds like possibly as motility with solids. 2. Abdominal pain of unclear etiology. POSTPROCEDURE DIAGNOSES: 1. Esophagus is notable for a slight Schatzki's ring at the GE junction, dilated. Second-look showed good effect with disruption of ring. 2. Otherwise normal esophagogastroduodenoscopy. No etiology of discomfort identified. RECOMMENDATIONS: Advance diet. Continue PPI therapy. Consider possible other etiologies to abdominal pain, such as vasculitis or neuropathies. It may be reasonable to consider a vasculitis workup especially in light of the patient's pseudoaneurysm of the splenic artery, p-ANCA disease can do this sometimes. ANESTHESIA: TIVA. PROCEDURE IN DETAIL: After the patient was informed of the risks, benefits, and possible complications of endoscopy including perforation, bleeding, reaction to medication, and aspiration, informed consent was obtained. The patient was brought to endoscopy suite, where he was sedated in gradual fashion. Once he was comfortable, bite block was placed inside his orifice. The endoscope was advanced through the esophagus, stomach, and second and third portions of the duodenum and slowly removed. There was good visualization of the mucosa. There was no mass lesions or AV malformations identified. There was a slight Schatzki's ring at the GE junction. This was dilated with 54-Mongolian Ibrahim dilator. A second look showed disruption of that. The stomach was normal in forward and retroflexed views. The duodenum was normal. The scope was removed. The patient tolerated the procedure well. There were no complications. Job ID: [id number]
[2019-09-07] MEDS ORDERED: Potassium Chloride 20 MEQ TAB PO SCH (17:00)
[2019-09-07] MEDS: Atorvastatin Calcium 40 MG TAB PO SCH (20:05)
[2019-09-08] MEDS: Escitalopram Oxalate 10 mg Tablet PO SCH (08:39)
[2019-09-08] MEDS: Carvedilol 3.125 MG TAB PO SCH ×2 (08:39→16:56)
[2019-09-08] MEDS: Docusate 100 MG CAP PO SCH (08:39)
[2019-09-08] MEDS: Polyethylene Glycol 3350 17 GM Packet PO SCH (08:40)
[2019-09-08] MEDS: Saccharomyces boulardii 250 MG CAP PO SCH (08:40)
[2019-09-08 10:48] LABS: Hemoglobin 10.4 g/dL (14.0-18.0)
[2019-09-08 11:17] LABS: Anion Gap 14 mmol/L (10-20); BUN (Urea Nitrogen) 12 mg/dL (8.4-25.7); Calc. Creatinine Clearance 133 mL/min (70-130); Calcium 8.9 mg/dL (7.8-10.44); Carbon Dioxide 23 mmol/L (23-31); Chloride 104 mmol/L (98-107); Estimated GFR-MDRD Greater than 90; Glucose 134 mg/dL (80-115); Potassium 3.9 mmol/L (3.5-5.1); Sodium 137 mmol/L (136-145)
--- NOTE | 2019-09-08 11:21 | PRG ---
DATE OF SERVICE: 09/08/2019 SUBJECTIVE: Mr. Richard is doing well. No complaints. No chest pain or pressure. OBJECTIVE: VITAL SIGNS: Blood pressure 116/79, pulse 86 and regular. LUNGS: Clear. CARDIAC: Normal S1 and normal S2. ABDOMEN: Soft and nontender. EXTREMITIES: There is no edema. LABORATORY DATA: Most recent potassium is 3.4. He has received potassium since then. Peak troponin during this hospitalization was 15.5. Hemoglobin was 9.4 in the 5th, has been redrawn today. Reviewing the hospitalization, the patient did have increased liver function tests initially and abdominal pain. The patient had a tba-YF-rqrsfgjpf myocardial infarction, for which he received enoxaparin 80 mg. The following morning, he underwent cardiac catheterization, which revealed occlusion of an obtuse marginal branch. He also 50% to 60% lesion in his LAD. The following morning, the patient had severe abdominal pain and hypotension, required 2 units of packed red blood cells. A CT done on a stat basis revealed bleeding. It was thought that he may have a pseudoaneurysm in the splenic artery. The patient underwent coiling. He continued to have some pain and a repeat CT indicated that there is still some pseudoaneurysm, but it looked like he did not have clinically any additional bleeding. He underwent endoscopy, which did not show any evidence of the source of his bleeding. His liver function tests improved. ASSESSMENT: At this point, the patient's status is as follows; 1. Status post non-ST elevation myocardial infarction due to a branch occlusion of an obtuse marginal. 2. Severe abdominal bleeding, the patient was hypotensive and critically ill at that time. 3. Liver function test elevation has resolved. PLAN: At this time, I have recommended the following. 1. Carvedilol 3.125 mg twice a day. 2. Lisinopril 2.5 mg a day. 3. We will hold off on statins for now in view of recent increased liver function tests and unexplained abdominal pain or at least the abdominal pain has not completely certain etiology. 4. Hold off on aspirin for now in view of the recent life-threatening intra-abdominal bleeding. 5. Plan to come back and see us in the office in a couple of weeks. 6. Repeat liver function tests and lipid profile in 4 to 8 weeks, consideration for starting statins at that time if his liver function tests are normal and he stabilized. 7. I would leave him off aspirin at least for a couple of months in view of the severe intra-abdominal bleeding. He will come back and see us in the office in couple of weeks. 8. I instructed if he has recurrent abdominal pain to come back to the emergency room. Job ID: [id number]
[2019-09-08] MEDS: Acetaminophen/Codeine 30-300mg Tablet PO PRN (11:24)
[2019-09-08 14:09] LABS: Smooth Muscle Total ABS 3 Units (0-19)
--- NOTE | 2019-09-08 14:54 | PDOC.HOSPP ---
- Subjective Encounter Date: 09/08/19 Encounter Time: 14:52 Subjective: Mr. Richard was seen today in follow-up . He does not have any complaints. - Objective Vital Signs & Weight: Vital Signs (12 hours) Temp Pulse Resp BP Pulse Ox 09/08/19 11:18 98.2 F 85 18 119/75 96 09/08/19 07:29 98.4 F 87 16 116/79 98 09/08/19 04:00 97.8 F 76 20 119/74 95 Weight Weight 203 lb 11.2 oz Most Recent Monitor Data Heart Rate from ECG 93 NIBP 117/82 NIBP BP-Mean 93 Respiration from ECG 17 SpO2 97 I&O: 09/07/19 09/08/19 09/09/19 06:59 06:59 06:59 Intake Total 2167 720 Balance 2167 720 Result Diagrams: 09/08/19 10:33 09/08/19 10:33 Hospitalist ROS - Medication Medications: Active Medications Generic Name Dose Route Start Last Admin Trade Name Freq PRN Reason Stop Dose Admin Acetaminophen/Codeine Phosphate 2 tab 09/02/19 11:39 09/08/19 11:24 Tylenol #3 PO 2 tab Q4H PRN Administration Moderate Pain (4-6) Carvedilol 3.125 mg 09/04/19 17:00 09/08/19 08:39 Coreg PO 3.125 mg BID-WM MORAIMA Administration Diphenhydramine HCl 25 mg 09/04/19 20:36 09/04/19 20:45 Benadryl PO 25 mg HSPRN PRN Administration Insomnia Docusate Sodium 100 mg 09/02/19 09:00 09/08/19 08:39 Colace PO 100 mg DAILY MORAIMA Administration Escitalopram Oxalate 10 mg 09/01/19 09:00 09/08/19 08:39 Lexapro PO 10 mg DAILY MORAIMA Administration Hydralazine HCl 10 mg 08/31/19 02:48 08/31/19 12:29 Apresoline SLOW IVP 10 mg Q4H PRN Administration SBP > 180 and HR < 70 Morphine Sulfate 2 mg 09/03/19 15:27 09/04/19 02:02 Morphine SLOW IVP 2 mg Q2H PRN Administration Pain Pantoprazole Sodium 40 mg 09/05/19 09:00 09/08/19 08:40 Protonix PO 40 mg DAILY MORAIMA Administration Polyethylene Glycol 17 gm 09/02/19 09:00 09/08/19 08:40 Miralax PO Not Given DAILY MORAIMA Saccharomyces Lisadii 250 mg 08/31/19 09:00 09/08/19 08:40 Florastor PO 250 mg DAILY MORAIMA Administration Sodium Chloride 10 ml 08/31/19 09:00 09/08/19 08:40 Flush - Normal Saline IVF 10 ml Q12HR MORAIMA Administration Tramadol HCl 50 mg 08/31/19 16:24 09/03/19 21:50 Ultram PO 50 mg Q6H PRN Administration Pain - Exam Eye: PERRL Heart: RRR, no murmur, no gallops, no rubs, normal peripheral pulses Respiratory: CTAB, no wheezes, no rales, no ronchi, normal chest expansion Gastrointestinal: soft, non-tender, normal bowel sounds Hosp A/P (1) Abdominal pain Code(s): R10.9 - UNSPECIFIED ABDOMINAL PAIN Status: Acute (2) Splenic infarct Code(s): D73.5 - INFARCTION OF SPLEEN Status: Acute (3) NSTEMI (non-ST elevated myocardial infarction) Code(s): I21.4 - NON-ST ELEVATION (NSTEMI) MYOCARDIAL INFARCTION Status: Acute (4) Hypertension Code(s): I10 - ESSENTIAL (PRIMARY) HYPERTENSION Status: Chronic (5) Hepatitis C Code(s): B19.20 - UNSPECIFIED VIRAL HEPATITIS C WITHOUT HEPATIC COMA Status: Chronic - Plan * Abdominal Pain- ? etiology- EGD was essentially negative * Hypercoagualtion panel is pending * Splenic infarct- he is s/p embolization, and his H&H is stable * NSTEMI- to be treated medically- continue as per Cardiology recommendations * HTN- blood pressure is stable * Home today
[2019-09-08 16:17] VITALS: BP 113/67; TEMP 97.7
--- NOTE | 2019-09-08 21:02 | DIS ---
DATE OF ADMISSION: 08/30/2019 DATE OF DISCHARGE: 09/08/2019 PRIMARY CARE PHYSICIAN: at [facility]. DISCHARGE DISPOSITION: Home. PRIMARY DISCHARGE DIAGNOSES: 1. Non ST-segment elevated myocardial infarction. 2. Splenic infarct. 3. Acute blood loss anemia. 4. Schatzki's ring of the esophagus. 5. Hypertension. 6. History of hepatitis C. DISCHARGE MEDICATIONS: 1. Protonix 40 mg daily. 2. Lisinopril 2.5 mg daily. 3. 3.125 mg twice daily. 4. Lexapro 10 mg daily. PROCEDURES DONE DURING ADMISSION: The patient had a CT scan of the abdomen and pelvis, showing some mild diverticulosis. There are no other acute abnormalities. There was some scattered mild diverticula. The patient had an abdominal ultrasound showing no acute abnormality status post cholecystectomy, gallbladder being surgically absent. The patient had a cardiac catheterization and this demonstrated a mid LAD lesion of 50% and a proximal LAD lesion of 60%, 100% obtuse marginal lesion. The patient had an echocardiogram demonstrating an ejection fraction of 55% to 60%, a dilated aortic root at 4 cm. The patient had a CT scan of the brain, which was negative. The patient had a CT dissection protocol showing no appreciable aortic stenosis. There was no aortic stenosis. 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 There was prominent hemorrhage seen along the greater curvature of the stomach and protruding into the left gastrosplenic region, suspicious for pseudoaneurysm with interval bleeding. There was some multifocal areas of severe narrowing of the mid to distal internal mesenteric artery. 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 No additional hemorrhage. The patient also had an upper endoscopy and this showed normal EGD. There was Schatzki's ring at the GE junction, which was dilated. CODE STATUS: Full code. ALLERGIES: TO PENICILLIN. HOSPITAL COURSE: Mr. Richard is a pleasant 64-year-old gentleman, who was admitted to the hospital after suffering abdominal pain. The full details of which are outlined in the history and physical. The etiology of the pain was unclear and GI was consulted. At that time, there was elevation of his transaminases and then later his bilirubin. However, he had a normal alkaline phosphatase. Shortly after being admitted to the hospital, he began having angina symptoms and was noted to have an elevation in his troponins. He was evaluated by Cardiology and went for cardiac catheterization. 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 This was treated medically. A day or two after this, the patient was sitting up on the side of the bed and became extremely pale and hypotensive. 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 He was taken emergently by Vascular Surgery for embolization of the splenic artery. Hemostasis was achieved. After this procedure, the patient continued to have abdominal pain and for this reason, Cardiology was consulted once again and he was cleared for upper endoscopy, which had been planned by his can sorter at [facility]. He was found to have Schatzki ring, which was dilated but otherwise normal EGD. By this time, the patient was tolerating p.o. His abdominal pain had significantly improved and as such, he is being discharged home. He will not be on anticoagulation with aspirin or any antiplatelets due to the recent massive hemorrhage. He was placed on beta-zena, as well as low-dose GEORGI inhibitor. No statin due to elevated LFTs, which were never clearly explained. He will follow up at [facility] for further workup. Job ID: [id number]
[2019-09-09] MEDS ORDERED: Lisinopril 2.5 MG TAB PO SCH (09:00)
== END 2019-09-08 17:00 | disposition home or self-care (01) | DRG 270 ==
LOC: ERS 16:29 → ERHOLD 21:26 → OBSVTOIN 21:26 → 2SW 08-31 11:56 → CCU 09-02 00:49 → 2NO 09-04 18:11
PROVIDERS: ADMIT Internal Medicine; ATTEND Internal Medicine
PROC: 4A023N7 Measurement of Cardiac Sampling and Pressure, Left Heart, Percutaneous Approach (ICD-10-PCS; principal; 2019-08-30)
PROC: B2111ZZ Fluoroscopy of Multiple Coronary Arteries using Low Osmolar Contrast (ICD-10-PCS; 2019-08-30)
PROC: B2151ZZ Fluoroscopy of Left Heart using Low Osmolar Contrast (ICD-10-PCS; 2019-08-30)
PROC: 04L43DZ Occlusion of Splenic Artery with Intraluminal Device, Percutaneous Approach (ICD-10-PCS; 2019-09-03)
PROC: B4101ZZ Fluoroscopy of Abdominal Aorta using Low Osmolar Contrast (ICD-10-PCS; 2019-09-03)
PROC: 0D748DZ Dilation of Esophagogastric Junction with Intraluminal Device, Via Natural or Artificial Opening Endoscopic (ICD-10-PCS; 2019-09-07)
DX: I21.4 Non-ST elevation (NSTEMI) myocardial infarction (principal); K66.1 Hemoperitoneum; D62 Acute posthemorrhagic anemia; I74.8 Embolism and thrombosis of other arteries; R10.9 Unspecified abdominal pain; I10 Essential (primary) hypertension; B19.20 Unspecified viral hepatitis C without hepatic coma; K57.90 Diverticulosis of intestine, part unspecified, without perforation or abscess without bleeding; F32.9 Major depressive disorder, single episode, unspecified; L40.50 Arthropathic psoriasis, unspecified; K59.00 Constipation, unspecified; R13.19 Other dysphagia; I72.8 Aneurysm of other specified arteries; K22.2 Esophageal obstruction; I25.10 Atherosclerotic heart disease of native coronary artery without angina pectoris; I95.9 Hypotension, unspecified; E87.6 Hypokalemia; Z79.899 Other long term (current) drug therapy; Z88.0 Allergy status to penicillin; Z85.46 Personal history of malignant neoplasm of prostate; Z90.49 Acquired absence of other specified parts of digestive tract; Z87.891 Personal history of nicotine dependence; D73.5 Infarction of spleen
CPT/HCPCS: 36246; 36415; 36416; 36430; 37244; 70450; 71045; 71275; 72191; 74174; 74175; 74177; 76705; 76942; 80048; 80053; 80074; 80306; 81003; 81240; 81241; 82150; 82390; 82553; 83090; 83516; 83605; 83690; 83735; 84484; 85014; 85018; 85025; 85240; 85300; 85303; 85305; 85307; 85379; 85598; 85610; 85730; 86147; 86850; 86900; 86901; 87040; 87522; 93005; 93010; 93306; 93458; 93798; 96361; 96374; 96375; 96376; 99152; C1725; C1769; C9113; J0360; J0744; J1644; J1650; J1885; J2001; J2250; J2270; J2405; J2704; J3010; Q0163; Q9966; Q9967

== ENCOUNTER 2021-05-04 14:53 | Outpatient (CLI) | payer BC | END 2021-05-04 14:54 | disposition home or self-care (01) | LOC: BICRAD 14:53 | PROVIDERS: ATTEND Physician Assistant | DX: M54.2 Cervicalgia (principal); M47.812 Spondylosis without myelopathy or radiculopathy, cervical region | CPT/HCPCS: 72040 ==

== ENCOUNTER 2025-09-28 13:38 | Emergency (ER) | payer OTHER ==
[2025-09-28 14:44] LABS: #Basophils 0.06 10x3/uL (0.0-0.2); #Eosinophils 0.18 10x3/uL (0.0-0.7); #Monocytes 1.30 10x3/uL (0.11-0.59); #Neutrophils 9.75 10x3/uL (1.40-6.50); %Basophils 0.4 % (0.0-1.0); %Eosinophils 1.2 % (0.0-10.0); %Lymphocytes 25.2 % (21.0-51.0); %Monocytes 8.6 % (0.0-10.0); %Neutrophils 64.1 % (42.0-75.0); Hematocrit 45.2 % (42.0-52.0); Hemoglobin 16.4 g/dL (14.0-18.0); Mean Corpuscular Hemoglobin 33.0 pg (27.0-31.0); Mean Corpuscular Volume 90.9 fL (78.0-98.0); Platelet Count 268 10x3/uL (130-400); Red Blood Cell (RBC) Count 4.97 mill/uL (4.70-6.10); White Blood Cell (WBC) Count 15.19 10x3/uL (4.8-10.8)
[2025-09-28 15:04] LABS: ALT (SGPT) 47 U/L (Less than 45); AST (SGOT) 40 U/L (11-34); Albumin 4.1 g/dL (3.1-4.5); Alkaline Phosphatase 75 U/L (40-110); Anion Gap 22 mmol/L (10-20); BUN (Urea Nitrogen) 13 mg/dL (8.4-25.7); Bilirubin, Total 0.4 mg/dL (0.3-1.2); Calc. Creatinine Clearance 0 mL/min (70-130); Calcium 9.6 mg/dL (7.8-10.44); Carbon Dioxide 21 mmol/L (23-31); Chloride 102 mmol/L (98-107); Globulin 2.9 g/dL (2.4-3.5); Glucose 113 mg/dL (80-115); Lipase 40 U/L (8-78); Potassium 3.7 mmol/L (3.5-5.1); Sodium 141 mmol/L (136-145)
[2025-09-28 15:22] LABS: Bacteria/HPF None Seen HPF (None Seen); CAUTI Indications for Culture Pelvic or flank pain; Glucose, Urine (Dipstick) Normal (Negative); Leukocyte Negative Leu/uL (Negative); Protein, Urine (Dipstick) Negative (Neg-Trace); RBC/HPF 0-3 HPF (0-3); Specific Gravity, Urine 1.009 (1.002-1.036); WBC/HPF None Seen HPF (0-3)
[2025-09-28 15:26] LABS: Urine Culture Reflex No No
== END 2025-09-28 16:20 | disposition home or self-care (01) ==
LOC: ERS 13:38
DX: R10.84 Generalized abdominal pain (principal); R11.2 Nausea with vomiting, unspecified; I10 Essential (primary) hypertension; Z87.891 Personal history of nicotine dependence; Z79.899 Other long term (current) drug therapy
CPT/HCPCS: 74177; 80053; 81001; 83690; 84484; 85025; 93005; J2270; 96361; 96374; 96376